=== PATIENT | female | born 1945 | race Caucasian/White ===

== ENCOUNTER 2023-09-25 12:57 | Inpatient (IN) | payer MEDICARE, OTHER, SELFPAY ==
[2023-09-25 08:14] VITALS: BP 171/82
--- NOTE | 2023-09-25 08:43 | ED.GENMED ---
History of Present Illness
General
Chief Complaint: Breathing Problem
Source: patient and family (Daughter)
Exam Limitations: none
Time Seen by Provider: 09/25/23 08:32
Nursing documentation reviewed up to this point in time: agreed with
Travel History
Have you had any contact with someone who has COVID-19?: No
Do you have any symptoms of coronavirus? Fever > 100 degrees, chills, cough, shortness of breath, sore throat, loss of taste or smell, muscle aches, or headache?: No
History of Present Illness
History of Present Illness:
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
for evaluation of cough and shortness of breath. Patient reports that she has had URI type symptoms for the past 4 days. She describes significant congestion and rhinorrhea, nonproductive cough. She says that she has had over the past 2 days or
so increasing cough and now shortness of breath as well. She says that today she noticed that she was having worsening shortness of breath and tightness in her chest and this prompted her to come to the emergency room for evaluation. She has not
noted any fevers or chills. She has not had any GI symptoms. She denies any swelling or pain in the legs. She says that her daughter was sick with URI recently and apparently her grandson was sick with influenza. Patient does take azithromycin
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
Past History
Past History
ED Past Medical History: CAD, GERD, HTN, Hypercholesterolemia, Valvular disease and Other (MAC)
ED Past Surgical History: Cardiac, , Tonsilectomy and Other
Social History
Tobacco: Non-smoker
Review of Systems
Review of Systems
All Other Systems: ROS reviewed and negative except as documented in HPI and ROS
Constitutional: Reports fatigue; Denies fever or chills
EENT: Reports runny nose and other (Congestion); Denies sore throat
Respiratory: Reports cough and trouble breathing
Cardiac: Reports chest pain (Chest tightness); Denies diaphoresis or palpitations
ABD/GI: Denies abdominal pain, nausea, vomiting or diarrhea
: Denies flank pain
Musculoskeletal: Denies neck pain or back pain
Neurological: Denies headache, weakness or numbness
Phy Exam
Physical Exam
Physical Exam:
General: Awake, alert; tachypneic but speaking full sentences not in acute respiratory distress
Head: Normocephalic, atraumatic
Eyes: Conjunctiva normal, sclera anicteric
Throat: Airway intact, handling secretions
Neck: Trachea midline, supple without meningismus; anterior cervical lymphadenopathy
Lungs: Frequent hacking cough, diffuse bilateral wheezing slightly more pronounced at the left lung base
Heart: Tachycardia with regular rhythm, no murmurs, gallops, or rubs
Abd: Soft, non distended, nontender
Neuro: Cranial nerves grossly intact, speech fluid
Skin: no rash
Extremities: No edema in extremities, equal pulses in all extremities
Scores
Heart Failure Risk
Heart Failure Risk Score: Not Applicable
Heart Score for Chest Pain Patients
STEMI patient?: Not applicable
Withdrawal Assessment of Alcohol
Withdrawal Assessment Completed?: Not applicable
Course
Orders/Labs/Results
Orders:
Orders
09/25/23 08:33
Electrocardiogram (*1) Urgent
Reason for Study: Shortness of Breath
EKG- Treatment ONCE
CR Chest - 2 Views Urgent
Comment:
Reason For Exam: cough, sob
09/25/23 08:42
COVID-19 Antigen Urgent
Source: Nasal Swab
Complete Blood Count/With Diff Urgent
Comprehensive Metabolic Panel Urgent
Influenza A+B Rapid Molecular Urgent
GT Source: Nasal Swab
Specimen Description:
Ipratropium/Albuterol Sulfate [Duoneb] 3 ml INH R NOW ONE
MethylPREDNISolone PF [Solu-Medrol Pf] 125 mg IV NOW STA
09/25/23 08:47
Acetaminophen [Tylenol] 650 mg PO NOW STA
09/25/23 10:10
Ipratropium/Albuterol Sulfate [Duoneb] 3 ml .ROUTE .STK-MED ONE
Ipratropium/Albuterol Sulfate [Duoneb] 3 ml INH R NOW STA
09/25/23 11:01
CefTRIAXone [Rocephin] 1,000 mg IV NOW STA
Abnormal Lab Results
09/25/23
08:42
RBC 4.09 L 10^6/uL
(4.20-5.40)
MCH 31.1 H pg
(27.0-31.0)
MCHC 32.6 L g/dL
(33.0-37.0)
Absolute Neuts (auto) 6.6 H 10^3/uL
(1.4-6.5)
Absolute Lymphs (auto) 1.0 L 10^3/uL
(1.2-3.4)
Neutrophils % 81.1 H %
(42.2-75.2)
Lymphocytes % 12.3 L %
(20.5-51.1)
Glucose 144 H mg/dl
(70-99)
09/25/23 08:42
09/25/23 08:42
Vital Signs
Initial and Last Documented VS:
Initial Vital Signs
Temp Pulse Resp BP Pulse Ox
36.8 C 105 30 171/82 90
09/25/23 08:14 09/25/23 08:14 09/25/23 08:14 09/25/23 08:14 09/25/23 08:14
Last Documented Vital Signs
Temp Pulse Resp BP Pulse Ox
36.8 C 98 26 134/60 89
09/25/23 08:14 09/25/23 10:15 09/25/23 10:15 09/25/23 10:00 09/25/23 10:15
MDM/Problems Addressed
Differential Diagnosis Includes:
Bronchitis, pneumonia, URI
MDM/Problems Addressed:
78-year-old female presents for evaluation of worsening cough and shortness of breath in the setting of recent URI type symptoms. Multiple family members sick with upper respiratory illnesses recently. She rash was hypertensive and tachycardic,
tachypneic. Low normal pulse ox on room air. Afebrile. Physical exam as above�notably has diffuse bilateral wheezing and frequent coughing. Plan to place an IV check labs including a CBC and a CMP; will check swabs for influenza and COVID. Will
check a stat chest x-ray to evaluate for pneumonia. Will treat with Solu-Medrol and DuoNeb given her significant wheezing, clinical concern for bronchitis. Will monitor very closely reassess after the above.
Labs reviewed: CBC unremarkable, CMP shows no clinically significant abnormalities. Viral swabs were negative here. Chest x-ray reviewed by me shows right middle lobe scarring versus opacity�was present on old chest x-ray but appears more
pronounced today. Clinical reassessment patient still with significant bilateral wheezing and coughing. Pulse ox actually slightly worse after DuoNeb and steroid she was placed on nasal cannula for oxygen support. Will cover with antibiotics for
possible pneumonia continue with DuoNeb treatments as well. At this point admission indicated given hypoxic respiratory failure and continued symptoms despite ED treatment. Discussed with hospitalist for admission.
Chronic conditions affecting care:
MAC with partial lung resection complicates respiratory illness
Acute Exacerbation and/or Progression of Chronic Illness:
Acutely hypertensive
*Radiology
Radiology exam reviewed: preliminary read by ED provider and radiology read reviewed
*Pulse Oximetry
Patient hypoxic: yes
*EKG
Interpreted by ED Provider?: Yes
Heart Rate: 97
Rate: normal
Rhythm: sinus
[place]: left axis deviation
Interval: normal interval
QRS Pattern: normal QRS
Ischemia: no ischemia
*Critical Care Note
Total Time (30-74mins, 75-104mins- exclusive of procedures): Not Applicable
Data Reviewed
Review of Other/Old Records Reveals: Labs and Records
Source: patient and family (Daughter)
Patient Management
Discussion with other providers: Hospitalist (Discussed with hospitalist)
Escalation/DeEscalation of care consider admission/obs:
Admission indicated
ED Attending Note
-
Portions of this chart may have been created with voice recognition software.� Occasional wrong word or��sound alike� substitutions may have occurred due to the inherent limitations of voice recognition software.
Discharge Plan
Departure
Patient Disposition: Admit
Date of Disposition: 09/25/23
Time of Disposition: 11:02
Admit to doctor: Charli
Presentation/result/management discussed w/ accepting MD/DO: Hospitalist
Discharge Problem:
Acute hypoxic respiratory failure, Pneumonia, Acute bronchitis
Prescriptions:
No Action
ascorbic acid (vitamin C) [Vitamin C] 1,000 mg Tablet
1,000 mg PO DAILY
prednisone 10 mg Tablet
10 mg PO DIRECTED PRN (Reason: SOB )
clopidogrel [Plavix] 75 mg Tablet
75 mg PO DAILY
pantoprazole 20 mg Tablet,Delayed Release (Dr/Ec)
20 mg PO DAILY
levothyroxine 88 mcg Tablet
88 mcg PO DAILY
losartan 25 mg Tablet
25 mg PO DAILY
magnesium 200 mg Tablet
200 mg PO 1XD
Rx Instructions:
In evening
rosuvastatin 20 mg Tablet
20 mg PO DAILY
Anoro Ellipta 62.5-25 mcg/actuation Blister With Device
1 inh INHALATION DAILY
aspirin 81 mg Capsule
81 mg PO DAILY
calcium
1,200 unit PO DAILY AT 0700
albuterol sulfate 2.5 mg /3 mL (0.083 %) Solution For Nebulization
2.5 mg inhalation R Q4HPRN PRN (Reason: SOB) Qty: 75 0RF
biotin 2,500 mcg Capsule
2,500 mcg PO DAILY
PreserVision AREDS-2
1 cap PO DAILY
Vitamin B-12
1 tab PO DAILY
apple cider vinegar
1 tab PO DAILY
Referrals:
Naldo Rene DO [Family Provider] -
Interventions
Interventions:
*Risk Screen - Suicide Last Done: 09/25/23 08:14
*General Assessment Last Done: 09/25/23 08:14
*Neglect/Abuse Screening Last Done: 09/25/23 08:14
ED- Fall Risk Assessment Last Done: 09/25/23 08:44
*ED COVID-19 Vaccine History Last Done: 09/25/23 08:43
ED- Cardiac Assessment Last Done: 09/25/23 08:44
ED- Pulmonary Assessment Last Done: 09/25/23 08:44
[2023-09-25] MEDS: TYLENOL 650 MG PO (08:51)
[2023-09-25] MEDS: SOLU-MEDROL PF 125 MG IV (08:52)
[2023-09-25] MEDS: DUONEB 3 ML INH ×2 (08:55→10:18)
[2023-09-25 09:04] LABS: % Basophils 0.4 % (0-2); % Eosinophils 0.1 % (0-6); % Immature Granulocytes 0.2 % (0-0.5); % Lymphocytes 12.3 % (20.5-51.1); % Monocytes 5.9 % (1.7-9.3); % Neutrophils 81.1 % (42.2-75.2); Absolute Monocytes 0.5 10^3/uL (0.1-0.6); Absolute Neutrophils 6.6 10^3/uL (1.4-6.5); Hemoglobin 12.7 g/dL (12.0-16.0); Mean Corp Hgb Conc. 32.6 g/dL (33.0-37.0); Mean Corpuscular Hgb 31.1 pg (27.0-31.0); Mean Corpuscular Volume 95.4 fL (81.0-99.0); Mean Platelet Volume 9.7 fL (7.4-10.4); Nucleated Red Blood Cells % 0 %; Platelet Count 205 10^3/uL (130-400); Red Blood Cell Count 4.09 10^6/uL (4.20-5.40); Red Cell Dist. Width 14.4 % (11.5-14.5); White Blood Cell Count 8.2 10^3/uL (4.8-10.8)
[2023-09-25 09:18] LABS: COVID-19 Antigen Negative (Negative)
[2023-09-25 09:20] LABS: ALT (SGPT) 18 U/L (0-35); AST (SGOT) 26 U/L (14-36); Albumin 4.1 g/dl (3.5-5.0); Alkaline Phosphatase 65 U/L (38-126); Blood Urea Nitrogen 10 mg/dl (7-17); Calcium 8.8 mg/dl (8.4-10.2); Carbon Dioxide 25 mmol/L (22-30); Chloride 104 mmol/L (98-107); Glucose 144 mg/dl (70-99); Potassium 4.2 mmol/L (3.5-5.1); Sodium 137 mmol/L (135-145); Total Bilirubin 0.4 mg/dl (0.2-1.3); Total Protein 7.2 g/dl (6.3-8.2); eGFR > 60.00
[2023-09-25 09:23] VITALS: BP 153/59
[2023-09-25 10:00] VITALS: BP 134/60
[2023-09-25] MEDS: ROCEPHIN 1000 MG IV (11:21)
--- NOTE | 2023-09-25 12:18 | HPS.HSE ---
Addendum entered and electronically signed by Jorge Alberto Augustin MD 09/25/23 21:07:
I independently saw and examined the patient on 09/25/23.
The DYNAMIC ETCHING PROCESSOR's note was reviewed and I agree with the note.
Comment:
78-year-old female with past medical history of CAD with stents, TAVR, bronchiectasis, pulm MAC treated in the past plus lung resection (previously followed at [facility] but physician retiring and now following Dr. Cobb who started
Azithromycin [facility]), COPD, HTN, HLD, GERD and Hypothyroidism presented from [facility] The patient reports that she has had worsening dry cough with shortness of breath , runny nose, sneezing, sore throat, left-sided anterior neck glands
swollen, fatigue for the past 4 days she is multiple family members sick with URI illnesses that flew in from [place] and that also live local to her. She denied fever, chills, chest pain, palpitations, abdominal pain, nausea, vomiting, diarrhea, or
urinary symptoms. She recently she was noted to be hypoxic 90% on room air with diffuse bilateral wheezing and coughing on exam.
Physical Exam
Tachypneic, on 6 L of oxygen
General: Respiratory Distress (n)
HEENT: Normocephalic
Cardiovascular: S1/S2
Respiratory: Wheeze, tachypnea present
GI: Soft and Non Distended. Positive bowel sounds.
Neurology: Awake, AO x 3 and No Motor Deficits
Skin: Warm and dry
Assessment/Plan
#Acute on chronic hypoxic respiratory failure 2/2 Acute bronchitis vs. Viral URI vs. PNA right lung
#History of Mycobacterium AVM complex
90% RA, 94% 6 LNC, 98.3 F, HR 98
-Patient recently had multiple family members recently visiting who were ill
-COVID/flu negative
-DuoNebs scheduled and as needed
-Prior pulmonary Dr elias Colon flashmj Pulm at [facility] for MAC
-Now follows with [facility] is on chronic Zithromax every other day started 2 weeks ago in August
-IV Decadron 4 mg every 6 hours
-Check sputum culture, blood cultures x 2, CBC, BMP
-DuoNebs scheduled and as needed
-No antibiotics except for Zithromax for anti-inflammatory effect
-Continue Anoro Ellipta
-Consult PULM
-COnsult I/D
-PT/OT/case management consult
CXR: Worsening aeration of the lungs anteriorly right greater than left consistent with superimposed pneumonic process in a patient with chronic lung changes
EKG: NSR 97 bpm, QTc 449 MS no significant change from January 2023
#Hyperglycemia�mild
BS 145 ,check HgbA1c
Healthy heart 2199 ADA diet
#Hypertension-benign
BP stable 134/60
-Continue losartan
#Hyperlipidemia
Continue Crestor
#CAD/cardiac stents
-Continue Plavix, aspirin
#AVR hx
#GERD
-Continue Protonix
#Hypothyroidism
-Continue levothyroxine
Past medical history of CAD with stents, TAVR, bronchiectasis, pulm MAC treated in the past plus lung resection (previously followed at [facility] but physician retiring and now following Dr. Cobb who started Azithromycin [facility]), COPD, HTN, HLD,
GERD and Hypothyroidism
DVT prophylaxis
-Subcu Lovenox
DNR per patient
Original Note:
Family Physician
-
Family Physician: Naldo Rene
Chief Complaint
-
Wheezing, shortness of breath, nonproductive cough, sneezing, postnasal drip, sore throat
History of Present Illness
78-year-old female from [facility] The patient reports that she has had worsening dry cough with shortness of breath , runny nose, sneezing, sore throat, left-sided anterior neck glands swollen, fatigue for the past 4 days she is multiple
family members sick with URI illnesses that flew in from [place] and that also live local to her. She denies fever, chills, chest pain, palpitations, abdominal pain, nausea, vomiting, diarrhea, urinary symptoms. She recently she was noted to be
hypoxic 90% on room air with diffuse bilateral wheezing and coughing on exam.
Patient followed with Elias durán at [facility] for MAC and scarring to lungs, but recently changed to [facility] and has been on chronic Zithromax every other day for the past 2 weeks. She has past medical history of CAD, HTN, HLD,
AVR, cardiac stents, GERD, hypothyroidism, lingular resection of left lung, Mycobacterium AVM complex.
Medical History
Past Medical History
Past Medical History: Reports Other (lingular resection of left lung, Mycobacterium AVM complex,CAD, HTN, HLD, AVR, cardiac stents, GERD, hypothyroidism)
Past Surgical History: Reports Other (lingular resection of left lung, Mycobacterium AVM complex, section, tonsillectomy, AVR)
Social History
Tobacco: Non-smoker
Alcohol: None
Drug: None
Personal: Single
Living: Alone ([facility])
Employment: Retired
Family History
Family History: CAD (Mother) and Other (Father abdominal ruptured aneurysm)
Allergies / Home Medications
Allergies reflects when Allergies were last updated in [employer].
Home Medications with original date entered in [employer]
Allergy/Medication List:
Allergies
Allergy/AdvReac Type Severity Reaction Status Date / Time
No Known Allergies Allergy Verified 05/06/22 07:39
Home Medications
ascorbic acid (vitamin C) 1,000 mg tablet (Vitamin C) 1,000 mg PO DAILY@1999 Supplement 02/26/23
clopidogrel 75 mg tablet (Plavix) 75 mg PO DAILY Blood Clot Prevention/Tx 02/26/23
levothyroxine 88 mcg tablet 88 mcg PO DAILY Thyroid 02/26/23
losartan 25 mg tablet 25 mg PO DAILY Blood Pressure 02/26/23
magnesium 200 mg tablet 200 mg PO DAILY@1999 Supplement 02/26/23
pantoprazole 20 mg tablet,delayed release 20 mg PO DAILY Gastrointestinal Issue 02/26/23
rosuvastatin 20 mg tablet 20 mg PO DAILY@1999 High Cholesterol 02/26/23
umeclidinium 62.5 mcg-vilanterol 25 mcg/actuation powdr for inhalation (Anoro Ellipta) 1 inh inhalation R DAILY Lung/Breathing Issues 02/26/23
Elderberry 1 tab PO .LUNCHTIME 09/25/23
Mucinex Cold And Flu Am 1 tab PO Q4HPRN PRN congestion 09/25/23
Mucinex Cold And Flu Pm 1 tab PO Q4HPRN PRN congestion 09/25/23
acetaminophen 325 mg tablet (Tylenol) 325 mg PO DAILYPRN PRN mild pain 09/25/23
albuterol sulfate 2.5 mg/3 mL (0.083 %) solution for nebulization 2.5 mg inhalation R BIDPRN PRN SOB 09/25/23
aspirin 81 mg tablet,delayed release 81 mg PO DAILY 09/25/23
azithromycin 250 mg tablet 250 mg PO MOWEFR@0800 09/25/23
biotin 2,500 mcg capsule 2,500 mcg PO DAILY 09/25/23
calcium carbonate 600 mg calcium (1,500 mg) tablet (Calcium) 1,200 mg PO DAILY@199909/25/23
clobetasol 0.05 % topical cream 1 applic topical HSPRN PRN apply to right leg 09/25/23
cyanocobalamin (vitamin B-12) 1 tab PO DAILY@199909/25/23
denosumab 60 mg/mL subcutaneous syringe (Prolia) 60 mg SC [id number] 09/25/23
Review of Systems
-
History Source: Patient
A 12 point ROS was completed and negative except as noted: Yes
Constitutional: Reports Fatigue; Denies Fever or Chills
EENT: Reports Sore Throat, Runny Nose and Other (Postnasal drip)
Respiratory: Reports Cough (Nonproductive) and Trouble Breathing (Expiratory wheezing)
Cardiac: Denies Chest Pain, Diaphoresis, Palpitations or Syncope
Abdomen/GI: Denies Abdominal Pain, Nausea, Vomiting, Diarrhea, Constipated, Bloody Stools or Black Stools
: Denies Dysuria, Frequency, Flank Pain, Incontinence, Difficulty Voiding or Urgency
Musculoskeletal: Denies Joint Pain or Edema
Skin: Denies Itching or Rash
Neurological: Denies Dizzy, Headache or Weakness
Endocrine: Reports No Symptoms
Hematologic/Lymphatic: Reports No Symptoms
Psych: Reports Calm
Physical Exam
Vital Signs
Vital Signs
Temp Pulse Resp BP Pulse Ox
98.3 F 98 26 134/60 94
09/25/23 08:14 09/25/23 10:15 09/25/23 10:15 09/25/23 10:00 09/25/23 11:58
Physical Exam
General: Conversant; No Pain, Fever or Chills
HEENT: NormoCephalic, Anicteric, Moist mucous membranes, [place]sey Conjunctivae, No Ptosis, Pharyngeal Efythema (Tonsils absent no posterior exudate), Oxygen (6L NC) and Other (Left anterior lymphadenopathy with tenderness to touch)
Respiratory: Wheezes (Fine expiratory wheezes bilaterally); No Rales or Rhonchi
Cardiac: S1/S2 and Regular Rhythm; No Murmur, Rub, Gallop or Peripheral Edema
Breast: Deferred by me
GI: Soft, Non Tender, Non Distended, Normal Bowel Sounds and No Hepatosplenomegaly
Rectal: Deferred by Provider
Genito-urinary: Deferred by me
Musculoskeletal: No Clubbing, No Cyanosis and No Edema
Skin: Warm and Dry; No Rash or Jaundice
Neuro: AO x 3, No Motor Deficits, Nonfocal/grossly intact and No Sensory Deficits; No Slurred Speech, Facial Droop, Tremors or Sedated
Psych: Calm
Laboratory Results
-
09/25/23 08:42
09/25/23 08:42
Laboratory Results
Total Bilirubin 0.4 mg/dl (0.2-1.3) 09/25/23 08:42
AST 26 U/L (14-36) 09/25/23 08:42
ALT 18 U/L (0-35) 09/25/23 08:42
Alkaline Phosphatase 65 U/L (38-126) 09/25/23 08:42
Data Reviewed
-
Diagnostic Radiology: Report Reviewed by me
Lab Data: Labs Reviewed by me
Impression/Plan
-
Impression/plan:
Admit to MedSurg
#Acute on chronic hypoxic respiratory failure 2/2 Acute bronchitis vs PNA right lung
#HX Mycobacterium AVM complex
90% RA, 94% 6 LNC, 98.3 F, HR 98
-COVID/flu negative
-DuoNebs scheduled and as needed
-Prior pulmonary Dr elias parra Pulm at [facility] for MAC
-Now follows with [facility] is on chronic Zithromax every other day started 2 weeks ago in August
-IV Decadron 4 mg every 6 hours
-Check sputum culture, blood cultures x 2, CBC, BMP
-Check strep culture
-Throat loss injures
-DuoNebs scheduled and as needed
-IV Zithromax, IV Rocephin
-Continue Anoro Ellipta
-Consult PULM
-COnsult I/D
-PT/OT/case management consult
CXR: Worsening aeration of the lungs anteriorly right greater than left consistent with superimposed pneumonic process in a patient with chronic lung changes
EKG: NSR 97 bpm, QTc 449 MS no significant change from January 2023
#Hyperglycemia�mild
BS 145 ,check HgbA1c
Healthy heart 2200 ADA diet
#HTN-benign
BP stable 134/60
-Continue losartan
#HLD
Continue Crestor
#CAD/cardiac stents
-Continue Plavix, aspirin
#AVR hx
#GERD
-Continue Protonix
#Hypothyroidism
-Continue levothyroxine
DVT prophylaxis
-Subcu Lovenox
DNR per patient
[2023-09-25] MEDS: ANESTHETIC LOZENGE 1 LOZENGE PO (13:15)
[2023-09-25 14:07] VITALS: BP 144/68; BMI 28.0
--- NOTE | 2023-09-25 14:31 | PTCARENOTE ---
Received patient from ED via stretcher. AAOx3, assisted to bed. +SOB/PAN, 6LO2 94%. Daughter at bedside. Assessed and oriented to room. Call doan in close reach.
[2023-09-25] MEDS: ZITHROMAX INFUSION 250 IV (14:49)
--- NOTE | 2023-09-25 14:54 | CON.ID ---
Consultation
-
Date/Time Consultation Requested: 09/25/2023, 1248
Date/Time Consultation Performed: 09/25/2023, 1455
Requesting Provider: JÚNIOR Lockhart
Performing Provider: Dr. Leonarda Barba
Reason for Consultation: bronchtis vs MAC vs PNA
Chief Complaint / Past History
Chief Complaint
SOB
History of Present Illness
78 year old female with CAD, TAVR, bronchiectasis, pulm MAC treated in the past plus lung resection (previously followed at [facility] but physician retiring and now following Dr. Cobb who started Azithromycin [facility]). She started feeling unwell
since Friday 09/22. She c/o painful left neck gland, sneezing, rhinorrhea, then cough (mostly dry), with SOB. She reports her daughter flew in from [place] last week. Daughter caught something on the plane with URI. Her nephew also recently ill
with URI. Pt's breathing became very labored and therefore she came to the ED today. No fevers. CXR showed worsening aeration of bases. She was started on ceftriaxone, azithromycin, and steroid. The neck gland is less sore. No
ARAYA/N/V/dysuria/diarrhea.
Past History
Additional Past Medical History:
CAD s/p stents
HTN
HLD
TAVR
GERD
hypothyroidism
bronchiectasis, lung scarring
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
Allergy History:
No Known Allergies Allergy (Verified 05/06/22 07:39)
Medications Reviewed: Yes
Current Antibiotics:
Ceftriaxone
Azithromycin IV
Social History
Tobacco: Non-Smoker
Alcohol: None
Drug: None
Family History
Family History: Not Pertinent
Review of Systems
Review of Systems
General: Change in Appetite; Negative Fever or Chills
HEENT: Negative Stiff Neck, Sinus Problems or Headache
Respiratory: Dyspnea and Cough
Gasteroenterology: Negative Nausea or Vomiting
Genital / Urological: Negative Dysuria or Flank Pain
Endocrine: Weakness
Skin / Hair / Nails: Negative Rash
Neurological: Negative Headache or Dizziness
All systems: All other systems were reviewed and were negative
Vital Signs
Temp Pulse Resp BP Pulse Ox
98.3 F 99 22 144/68 94
09/25/23 14:07 09/25/23 14:07 09/25/23 14:07 09/25/23 14:07 09/25/23 14:38
Physical Exam
Physical Exam
Constitutional: Non-toxic
Head: Other (No frontal or maxillary sinus tenderness)
Eyes: Sclera Anicteric
Cardiovascular: Regular Rate and S1/S2
Pulmonary: Other (labored breathing; decreased airway movement bilaterally)
Gastrointestinal: Soft, Non Tender, Non Distended and Normal Bowel Sounds
Genito-Urinary: Negative CVA Tenderness
Extremities: Negative Edema
Neurological: AO x 3
Lab / Diagnostic Study Results
09/25/23 08:42
09/25/23 08:42
Abs Immat Gran (auto) 0.0 10^3/uL (0-0.05) 09/25/23 08:42
Absolute Neuts (auto) 6.6 10^3/uL (1.4-6.5) H 09/25/23 08:42
Absolute Lymphs (auto) 1.0 10^3/uL (1.2-3.4) L 09/25/23 08:42
Absolute Monos (auto) 0.5 10^3/uL (0.1-0.6) 09/25/23 08:42
Absolute Basos (auto) 0.0 10^3/uL (0-0.2) 09/25/23 08:42
Immature Gran % 0.2 % (0-0.5) 09/25/23 08:42
Neutrophils % 81.1 % (42.2-75.2) H 09/25/23 08:42
Lymphocytes % 12.3 % (20.5-51.1) L 09/25/23 08:42
Monocytes % 5.9 % (1.7-9.3) 09/25/23 08:42
Eosinophils % 0.1 % (0-6) 09/25/23 08:42
Basophils % 0.4 % (0-2) 09/25/23 08:42
Microbiology Results
Micro:
09/25/23 12:56 Streptococcus Screen (GT) - Pending
Throat/Pharynx Streptococcus Rapid Screen - Final
Rapid Strep Screen (Group A) Negative
09/25/23 08:42 Influenza Types A & B (ABILIO) - Final
Nasal Swab Negative for Influenza A & B, NAAT
Negative results must be combined with clinical observations
and patient history.
Nucleic Acid Amplification test (NAAT)performed on the
[employer] platform.
09/25/23 CXR: Worsening aeration of the lung bases anteriorly right greater than left, consistent with superimposed pneumonic process in a patient with chronic lung changes
Assessment / Plan
# Viral URI
-sneezing, rhinorrhea, dry cough, multiple ill contacts family members with URI
-Supportive care.
# Bronchiectasis exacerbation with hypoxic insufficiency, triggered by viral URI
- currently on steroid
- Can continue azithromycin for anti-inflammatory effect
- DC ceftriaxone.
# Pulmonary MAC s/p lung resection (2012) and treated in the past.
- Per patient no worsening symptoms since off therapy.
-Recommend observation only.
--- NOTE | 2023-09-25 15:10 | PTOTSP ---
Speech Therapy Swallowing Evaluation
Oral/pharyngeal swallow deemed within functional limits without gross concern for aspiration or pharyngeal stasis.
Recommend
1. Continue with current diet of regular solids and thin liquids.
2. Upright with meals.
3. Rest breaks for energy conservation as needed if sob or increased work of breathing develops.
4. Meds with liquids as tolerated.
5. Consider VSE if silent aspiration is suspected. Otherwise ST will sign off
[2023-09-25 15:50] VITALS: BP 137/67
--- NOTE | 2023-09-25 15:53 | CON.PUL ---
Consultation
Consultation Request
Date/Time Consultation Requested: 09/25/2023
Date/Time Consultation Performed: 09/25/2023
Requesting Provider: Etta CALLEJAS
Performing Provider: Dr. Sukhdev Sims
Reason for Consultation: Acute respiratory insufficiency-bronchitis.
Medical History
-
History of Present Illness:
78-year-old female who resides at [facility]. Reports worsening cough, shortness of breath, runny nose, upper respiratory symptoms, sore throat for the past 4 days. Multiple family members are sick that were visiting from [place].
Denies any fevers, hemoptysis, phlegm production, diarrhea, nausea or vomiting.
She was found to be borderline hypoxic down to 90% in the emergency room. She was bronchospastic. Significant coughing during examination.
Patient usually follows up at [facility] with Dr. Yaw Segura for MAC and lung scarring, she was recently transition to our practice locally. She was started on low-dose azithromycin for anti-inflammatory properties about 2 weeks
ago.
Past Medical History
Past Medical History: Other (See assessment and plan section)
Social History
Tobacco: Non-smoker
Alcohol: None
Drug: None
Personal: Single
Living: Alone
Employment: Retired
Family History
Family History: Reviewed & Not Pertinent
Allergies / Home Medications
Allergies
Allergy/AdvReac Type Severity Reaction Status Date / Time
No Known Allergies Allergy Verified 05/06/22 07:39
Home Medications
Medication Instructions Recorded Confirmed Last Taken Type
ascorbic acid (vitamin C) 1,000 mg 1,000 mg PO DAILY@1999 Supplement 02/26/23 09/25/23 09/24/23 History
tablet (Vitamin C)
clopidogrel 75 mg tablet (Plavix) 75 mg PO DAILY Blood Clot 02/26/23 09/25/23 09/25/23 History
Prevention/Tx
levothyroxine 88 mcg tablet 88 mcg PO DAILY Thyroid 02/26/23 09/25/23 09/25/23 History
losartan 25 mg tablet 25 mg PO DAILY Blood Pressure 02/26/23 09/25/23 09/25/23 History
magnesium 200 mg tablet 200 mg PO DAILY@1999 Supplement 02/26/23 09/25/23 09/24/23 History
pantoprazole 20 mg tablet,delayed 20 mg PO DAILY Gastrointestinal 02/26/23 09/25/23 09/25/23 History
release Issue
rosuvastatin 20 mg tablet 20 mg PO DAILY@1999 High 02/26/23 09/25/23 09/24/23 History
Cholesterol
umeclidinium 62.5 mcg-vilanterol 1 inh inhalation R DAILY 02/26/23 09/25/23 09/25/23 History
25 mcg/actuation powdr for Lung/Breathing Issues
inhalation (Anoro Ellipta)
Elderberry 1 tab PO .LUNCHTIME 09/25/23 09/25/23 09/24/23 History
Mucinex Cold And Flu Am 1 tab PO Q4HPRN PRN congestion 09/25/23 09/25/23 09/25/23 History
Mucinex Cold And Flu Pm 1 tab PO Q4HPRN PRN congestion 09/25/23 09/25/23 09/24/23 History
acetaminophen 325 mg tablet 325 mg PO DAILYPRN PRN mild pain 09/25/23 09/25/23 09/25/23 History
(Tylenol)
albuterol sulfate 2.5 mg/3 mL 2.5 mg inhalation R BIDPRN PRN SOB 09/25/23 09/25/23 09/25/23 History
(0.083 %) solution for nebulization
aspirin 81 mg tablet,delayed 81 mg PO DAILY 09/25/23 09/25/23 09/25/23 History
release
azithromycin 250 mg tablet 250 mg PO MOWEFR@0800 09/25/23 09/25/23 09/24/23 History
biotin 2,500 mcg capsule 2,500 mcg PO DAILY 09/25/23 09/25/23 09/25/23 History
calcium carbonate 600 mg calcium 1,200 mg PO DAILY@199909/25/23 09/25/23 09/24/23 History
(1,500 mg) tablet (Calcium)
clobetasol 0.05 % topical cream 1 applic topical HSPRN PRN apply 09/25/23 09/25/23 2 Days Ago History
to right leg ~09/23/23
cyanocobalamin (vitamin B-12) 1 tab PO DAILY@199909/25/23 09/25/23 09/24/23 History
denosumab 60 mg/mL subcutaneous 60 mg SC [id number] 09/25/23 09/25/23 Unknown History
syringe (Prolia)
Review of Systems
-
History Source: Patient
All other systems: Negative unless noted
Vitals / Labs / Diagnostic Testing
Vital Signs
Temp Pulse Resp BP Pulse Ox
98.3 F 99 22 144/68 94
09/25/23 14:07 09/25/23 14:07 09/25/23 14:07 09/25/23 14:07 09/25/23 14:38
Lab Data
09/25/23 08:42
09/25/23 08:42
Microbiology
09/25/23 12:56 Throat/Pharynx Streptococcus Rapid Screen - Final
Rapid Strep Screen (Group A) Negative
09/25/23 08:42 Nasal Swab Influenza Types A & B (ABILIO) - Final
Negative for Influenza A & B, NAAT
Negative results must be combined with clinical observations
and patient history.
Nucleic Acid Amplification test (NAAT)performed on the
[employer] platform.
Diagnostic Testing:
Physical Exam
-
HEENT: Normocephalic
Cardiovascular: S1/S2
Respiratory: Wheeze
GI: Soft and Non Distended
Neurology: Awake, AO x 3 and No Motor Deficits
Skin: Warm
General: Respiratory Distress (n)
Assessment
-
-
Cough/bronchitis-respiratory sufficiency.
Conditions present prior admission:
Chronic, multifactorial including: Deconditioning, COPD, underlying bronchiectasis with post inflammatory scarring.CT chest: Improved groundglass opacities, Chronic bronchiectasis noted. Minimal 3 in bud opacities bilaterally.
History of MAC infection diagnosed in 2008, treated with antibiotics [id number]. Repeat sputum cultures were negative per prior manager programs report. No indication of active infection. Continue to monitor.Repeat CT chest 04/2023:Showed improvement on
acute pneumonia. There is chronic bronchiectasis.
Now Following locally with Dr. Sims last seen 09/10/2023
Moderate obstructive lung disease on pulmonary function testing 09/10/2023.
Chronically on ANORO
Coronary artery disease
Hypertension
Hyperlipidemia
History of aortic valve replacement
Cardiac stents
GERD
Hypothyroidism
CT chest 05/10/2023:
1. Chronic scarring and bronchiectasis within the right middle lobe. Chronic scarring at the left lung apex. Scattered foci of tree-in-bud opacities. Overall, findings are most suggestive of chronic indolent infection such as ESTELLA. Mild interstitial
fibrosis remains in the differential diagnosis.
2. Groundglass opacities seen on prior CT dated 02/27/2023 has significantly improved, and nearly resolved.
3. Moderate calcification of the LAD. Please correlate with symptoms of and risk factors for coronary artery disease, with further workup as clinically appropriate.
4. Small hiatal hernia, without evidence of incarceration.
5. Cholelithiasis without evidence of acute cholecystitis.
Assessment and plan:
Clinical picture more consistent with viral infection, exacerbated bronchiectasis due to this viral infection.
Continue symptomatic management
Continue steroids with hopefully rapid taper-is still bronchospastic.
Infectious disease correspondence reviewed: No need for additional antibiotics.
Continue azithromycin at a low dose prescribed by Dr. Sims for anti-inflammatory properties. dose after discharge should be 250 mg [id number]-[id number]-Ljjlyq
Patient usually on ANORO in the outpatient setting, trying to avoid inhaled corticosteroids due to increased risk of recurrent infection/ESTELLA.
Patient states that she is coughing significantly, hold inhalers.
Transition to nebulized DuoNebs.
Acapella device for secretion clearance
Antitussive
Mucolytic's
-
Last appointment 09/10/2023: Recurrent ESTELLA was not highly suspected.
Eventually will obtain repeat a sputum culture
Overall her latest CT of the chest shows significant improvement on bilateral infiltrates. She has chronic changes.
Her symptoms have been stable after ESTELLA therapy.
I will continue to observe in the outpatient setting.
-
Will continue to follow
[2023-09-25] MEDS: VENTOLIN NEBULES 2.5 MG INH ×2 (16:02→20:31)
[2023-09-25] MEDS: DECADRON 4 MG IV ×2 (16:09→22:29)
[2023-09-25] MEDS: LOVENOX 40 MG SC (17:33)
[2023-09-25] MEDS: MUCINEX 600 MG PO (20:01)
[2023-09-25] MEDS: CRESTOR 20 MG PO (20:01)
[2023-09-25] MEDS: MAG-TAB SR 84 MG PO (20:01)
[2023-09-25] MEDS: OSCAL CAL 500 1000 MG PO (20:01)
[2023-09-25] MEDS: VITAMIN C 1000 MG PO (20:01)
[2023-09-25 23:56] VITALS: BP 157/72
[2023-09-26] MEDS: SYNTHROID 88 MCG PO (05:16)
[2023-09-26] MEDS: DECADRON 4 MG IV ×4 (05:18→21:33)
[2023-09-26 07:00] VITALS: BP 137/58
[2023-09-26] MEDS: STRIVERDI RESPIMAT 2 PUFF INH (07:56)
[2023-09-26] MEDS: SPIRIVA RESPIMAT 2.5 MCG 2 PUFF INH (07:56)
[2023-09-26] MEDS: VENTOLIN NEBULES 2.5 MG INH ×4 (07:56→19:31)
[2023-09-26 08:34] LABS: ALT (SGPT) 18 U/L (0-35); AST (SGOT) 26 U/L (14-36); Alkaline Phosphatase 55 U/L (38-126); Blood Urea Nitrogen 15 mg/dl (7-17); Calcium 8.8 mg/dl (8.4-10.2); Carbon Dioxide 28 mmol/L (22-30); Chloride 103 mmol/L (98-107); Estimated Creatinine Clearance 63 ml/min; Glucose 206 mg/dl (70-99); Sodium 136 mmol/L (135-145); Total Bilirubin 0.4 mg/dl (0.2-1.3); eGFR > 60.00
[2023-09-26] MEDS: MUCINEX 600 MG PO ×2 (09:01→19:34)
[2023-09-26] MEDS: ASPIR LOW (ENTERIC COATED) 81 MG PO (09:01)
[2023-09-26] MEDS: VITAMIN B-12 1000 MCG PO (09:01)
[2023-09-26] MEDS: PROTONIX 20 MG PO (09:01)
[2023-09-26] MEDS: COZAAR 25 MG PO (09:01)
[2023-09-26] MEDS: PLAVIX 75 MG PO (09:01)
[2023-09-26] MEDS: ZITHROMAX 500 MG PO (09:01)
[2023-09-26] MEDS: FLUSH (NSS) 1 FLUSH IV ×2 (10:19→16:27)
[2023-09-26 10:30] VITALS: BP 144/57; PULSE 83; O2SAT 90
[2023-09-26] MEDS: TESSALON PERLES 100 MG PO (11:23)
[2023-09-26] MEDS: TYLENOL 650 MG PO (11:23)
--- NOTE | 2023-09-26 11:38 | CM ---
Patient seen bedside, initial assessment completed. Patient reports she resides alone at [facility], one story, denies DME in home. Patient currently on O2. Patient reports outpatient PT in past, [facility] in past, [facility] in
past. Patient confirms PCP Naldo Cortez, pharmacy [facility]. CM will continue to follow for discharge planning needs.
Plan; return to [facility], watch for PT/OT eval.
--- NOTE | 2023-09-26 13:15 | W.PN.ID1 ---
Date of Service
Date of Service: September 26, 2023
Today's Communication
Continue azithromycin.
Assessment / Plan
# Viral URI
-sneezing, rhinorrhea, dry cough, multiple ill contacts family members with URI
-Supportive care.
# Bronchiectasis exacerbation, triggered by viral URI
- Oxygen requirement decreased
- currently on steroid
- Can continue azithromycin (d2) for anti-inflammatory effect
# Pulmonary MAC s/p lung resection (2012) and treated in the past.
- Per patient no worsening symptoms since off therapy.
-Recommend observation only.
Additional Past Medical History:
CAD s/p stents
HTN
HLD
TAVR
GERD
hypothyroidism
bronchiectasis, lung scarring
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
Chief Complaint
-: Other (Viral URI)
Subjective / Review of Systems
+ SOB. Unable to produce sputum. Left neck gland no longer sore.
Vital Signs / Physical Exam
Vital Signs
Vital Signs
Temp Pulse Resp BP Pulse Ox
97.9 F 85 24 137/58 92
09/26/23 07:00 09/26/23 11:23 09/26/23 11:23 09/26/23 09:01 09/26/23 11:23
Physical Exam
Constitutional: No Acute Distress and Comfortable
Eyes: Sclera Anicteric
Cardiovascular: Regular Rate, S1/S2 and Other
Pulmonary: Other (Decreased BS)
Gastrointestinal: Soft, Non Tender, Non Distended and Normal Bowel Sounds
Genito-Urinary: Negative Gomez
Neurological: AO x 3
Objective Data
Lab Data
Lab Results
09/26/23 06:49
Estimated Creat Clear 63 ml/min 09/26/23 06:49
Total Bilirubin 0.4 mg/dl (0.2-1.3) 09/26/23 06:49
AST 26 U/L (14-36) 09/26/23 06:49
ALT 18 U/L (0-35) 09/26/23 06:49
Alkaline Phosphatase 55 U/L (38-126) 09/26/23 06:49
Most recent labs reviewed.
Micro Results:
09/25/23 12:56 Streptococcus Screen (GT) - Preliminary
Throat/Pharynx Culture in Progress
Streptococcus Rapid Screen - Final
Rapid Strep Screen (Group A) Negative
09/25/23 08:42 Influenza Types A & B (ABILIO) - Final
Nasal Swab Negative for Influenza A & B, NAAT
Negative results must be combined with clinical observations
and patient history.
Nucleic Acid Amplification test (NAAT)performed on the
[employer] platform.
09/25/23 CXR: Worsening aeration of the lung bases anteriorly right greater than left, consistent with superimposed pneumonic process in a patient with chronic lung changes
[2023-09-26 13:57] LABS: % Basophils 0.1 % (0-2); % Immature Granulocytes 0.3 % (0-0.5); % Lymphocytes 5.5 % (20.5-51.1); % Monocytes 3.5 % (1.7-9.3); % Neutrophils 90.6 % (42.2-75.2); Absolute Lymphocytes 0.5 10^3/uL (1.2-3.4); Absolute Monocytes 0.3 10^3/uL (0.1-0.6); Absolute Neutrophils 8.1 10^3/uL (1.4-6.5); Hematocrit 37.5 % (37.0-47.0); Hemoglobin 12.1 g/dL (12.0-16.0); Mean Corp Hgb Conc. 32.3 g/dL (33.0-37.0); Mean Corpuscular Hgb 30.9 pg (27.0-31.0); Mean Corpuscular Volume 95.7 fL (81.0-99.0); Mean Platelet Volume 9.8 fL (7.4-10.4); Nucleated Red Blood Cells % 0.2 %; Platelet Count 220 10^3/uL (130-400); Red Blood Cell Count 3.92 10^6/uL (4.20-5.40); Red Cell Dist. Width 14.6 % (11.5-14.5); White Blood Cell Count 8.9 10^3/uL (4.8-10.8)
[2023-09-26 15:31] VITALS: BP 141/57
--- NOTE | 2023-09-26 15:36 | W.PN.PUL3 ---
Today's Communication / Plan
-
Continue azithromycin
Continue secretion clearance interventions
Increase activity as tolerated
Monitor blood sugars on high-dose of his steroids.
Cont. IV dexamethasone.
Assessment
-
-
Cough/bronchitis-respiratory sufficiency.
Bronchospasm
Suspect Bronchiectasis exacerbation- tracheobronchitis, post viral infection.
Conditions present prior admission:
Chronic, multifactorial including: Deconditioning, COPD, underlying bronchiectasis with post inflammatory scarring.CT chest: Improved groundglass opacities, Chronic bronchiectasis noted. Minimal 3 in bud opacities bilaterally.
History of MAC infection diagnosed in 2008, treated with antibiotics [id number]. Repeat sputum cultures were negative per prior manager telemarketing report. No indication of active infection. Continue to monitor.Repeat CT chest 04/2023:Showed improvement on
acute pneumonia. There is chronic bronchiectasis.
Now Following locally with Dr. Sims last seen 09/10/2023
Moderate obstructive lung disease on pulmonary function testing 09/10/2023.
Chronically on ANORO
Coronary artery disease
Hypertension
Hyperlipidemia
History of aortic valve replacement
Cardiac stents
GERD
Hypothyroidism
CT chest 05/10/2023:
1. Chronic scarring and bronchiectasis within the right middle lobe. Chronic scarring at the left lung apex. Scattered foci of tree-in-bud opacities. Overall, findings are most suggestive of chronic indolent infection such as ESTELLA. Mild interstitial
fibrosis remains in the differential diagnosis.
2. Groundglass opacities seen on prior CT dated 02/27/2023 has significantly improved, and nearly resolved.
3. Moderate calcification of the LAD. Please correlate with symptoms of and risk factors for coronary artery disease, with further workup as clinically appropriate.
4. Small hiatal hernia, without evidence of incarceration.
5. Cholelithiasis without evidence of acute cholecystitis.
Assessment and plan:
Clinical picture more consistent with viral infection, exacerbated bronchiectasis due to this viral infection.
Continue symptomatic management
Still bronchospastic/coughing 09/26/2023. Feels tired.
Continue dexamethasone 4mg Iv q6hr.
Infectious disease correspondence reviewed: No need for additional antibiotics.
Continue azithromycin.
-
Continue azithromycin at a low dose prescribed by Dr. Sims for anti-inflammatory properties. dose after discharge should be 250 mg Lotluu-Mfizipspr-Cctysj
Patient usually on ANORO in the outpatient setting, trying to avoid inhaled corticosteroids due to increased risk of recurrent infection/ESTELLA.
Patient states that she is coughing significantly, hold inhalers.
-
Cont inhalers
Albuterol nebs QID
-
Acapella device for secretion clearance
Antitussive
Mucolytic's
-
Last appointment 09/10/2023: Recurrent ESTELLA was not highly suspected.
Eventually will obtain repeat a sputum culture
Overall her latest CT of the chest shows significant improvement on bilateral infiltrates. She has chronic changes.
Her symptoms have been stable after ESTELLA therapy.
I will continue to observe in the outpatient setting.
-
Will continue to follow
Subjective Data
-
Date of Service:
Date of Service: September 26, 2023
Chief Complaint: Pulmonary Follow Up (Acute respiratory insufficiency-acute bronchiectasis exacerbation.)
Subjective:
Continues to report coughing from
No significant hemoptysis or phlegm production
Review of Systems
General: Fever (n)
Cardiopulmonary: Dyspnea (none at rest), Cough and Wheezing
GI: Abdominal Pain (n) and Nausea (n)
Objective Data
Data Reviewed
Vital Signs / I&O / Oxygen:
Vital Signs
Temp Pulse Resp BP Pulse Ox
98.0 F 86 24 141/57 95
09/26/23 15:31 09/26/23 15:31 09/26/23 15:31 09/26/23 15:31 09/26/23 15:31
Intake and Output
09/25/23 09/26/23 09/27/23
06:59 06:59 06:59
Intake Total 970 / 970
Balance 970 / 970
SaO2 95
Nasal Cannula flow liters per 4
minute
Physical Exam
General: Respiratory Distress (n) and Comfortable
HEENT: Normocephalic
Cardiovascular: S1-S2 and Regular Rhythm
Respiratory: Wheeze
GI: Soft and Non Distended
Neurology: Awake and Alert
Skin: Warm
Labs/Micro/Reports
Lab Data
09/26/23 06:49
09/26/23 06:49
Microbiology
09/25/23 12:56 Throat/Pharynx Streptococcus Screen (GT) - Preliminary
Culture in Progress
09/25/23 12:56 Throat/Pharynx Streptococcus Rapid Screen - Final
Rapid Strep Screen (Group A) Negative
09/25/23 08:42 Nasal Swab Influenza Types A & B (ABILIO) - Final
Negative for Influenza A & B, NAAT
Negative results must be combined with clinical observations
and patient history.
Nucleic Acid Amplification test (NAAT)performed on the
[employer] platform.
--- NOTE | 2023-09-26 15:54 | PTCARENOTE ---
Pt AAO x3, HANSON; OOB to chair/BR; mark well. VSS. Currently on nc 4 lpm- aehehgd00%.; pt has marked PAN/tachypnea with activity. Pt with occ dry, non-productive cough; c/o chest/ribs 'aching' with coughing. Abd large, soft, mark PO. Voiding in BR
without difficulty. Resting in bed at present. Will continue to monitor.
--- NOTE | 2023-09-26 16:01 | W.PN.HOSP.TC ---
Today's Communication/Plan
-
Please see below
Assessment / Plan
Assessment / Plan
Physical Exam
Tachypneic, on 6 L of oxygen
General: Respiratory Distress (n)
HEENT: Normocephalic
Cardiovascular: S1/S2
Respiratory: Wheeze, tachypnea present
GI: Soft and Non Distended. Positive bowel sounds.
Neurology: Awake, AO x 3 and No Motor Deficits
Skin: Warm and dry
Assessment/Plan
#Acute on chronic hypoxic respiratory failure 2/2 Viral URI (likely) vs. PNA right lung (unlikely)
#History of Mycobacterium AVM complex
#Bronchiectasis
#Pulm MAC treated in the past plus lung resection (previously followed at [facility] but physician retiring and now following Dr. Cobb who started Azithromycin [facility]),
#COPD
-Patient recently had multiple family members recently visiting who were ill
-COVID/flu negative
-DuoNebs scheduled and as needed
-Prior pulmonary Dr elias parra Pulm at [facility] for MAC
-Now follows with [facility] is on chronic Zithromax every other day started 2 weeks ago in August
-IV Decadron 4 mg every 6 hours
-Continue secretion clearance interventions
-Follow sputum culture, blood cultures x 2
-DuoNebs scheduled and as needed
-No antibiotics except for Zithromax for anti-inflammatory effect
-Continue Anoro Ellipta
-Consulted pulmonary, recommendations appreciated
-Consulted ID, recommendations appreciated
-PT/OT/case management consult
�� CXR: Worsening aeration of the lungs anteriorly right greater than left consistent with superimposed pneumonic process in a patient with chronic lung changes
�� EKG: NSR 97 bpm, QTc 449 MS no significant change from January 2023
#Hyperglycemia�mild
BS 145 ,check HgbA1c
Healthy heart 2200 ADA diet
Monitor while on steroids
#Hypertension-benign
-Continue losartan
#Hyperlipidemia
Continue Crestor
#CAD/cardiac stents
-Continue Plavix, aspirin
#TAVR hx
#GERD
-Continue Protonix
#Hypothyroidism
-Continue levothyroxine
DVT prophylaxis
-Subcu Lovenox
DNR per patient
Anticipated Discharge: > 48 hours
Subjective/Interval History
-
Date of Service: September 26, 2023
Patient was seen and examined. She was still feeling about the same, breathing with effort.
Objective Data
-
Labs:
Laboratory Results
09/26/23
06:49
WBC 8.9
Hgb 12.1
Hct 37.5
Plt Count 220
Sodium 136
Potassium 5.0
Chloride 103
Carbon Dioxide 28
BUN 15
Creatinine 0.7
Glucose 206 H
Calcium 8.8
Total Bilirubin 0.4
AST 26
ALT 18
Alkaline Phosphatase 55
Vital Signs:
Vital Signs
Temp Pulse Resp BP Pulse Ox
98.0 F 88 24 141/57 95
09/26/23 15:31 09/26/23 15:39 09/26/23 15:39 09/26/23 15:31 09/26/23 15:54
I&O
09/25/23 09/26/23 09/27/23
06:59 06:59 06:59
Intake Total 970 / 970
Balance 970 / 970
[2023-09-26] MEDS: LOVENOX 40 MG SC (17:38)
[2023-09-26] MEDS: CRESTOR 20 MG PO (19:34)
[2023-09-26] MEDS: MAG-TAB SR 84 MG PO (19:34)
[2023-09-26] MEDS: OSCAL CAL 500 1000 MG PO (19:34)
[2023-09-26] MEDS: VITAMIN C 1000 MG PO (19:34)
[2023-09-26 23:55] VITALS: BP 143/63
[2023-09-27 00:02] VITALS: BP 143/63
[2023-09-27] MEDS: DECADRON 4 MG IV ×3 (04:41→15:33)
[2023-09-27] MEDS: SYNTHROID 88 MCG PO (05:33)
[2023-09-27 07:00] VITALS: BP 141/65
[2023-09-27] MEDS: STRIVERDI RESPIMAT 2 PUFF INH (07:10)
[2023-09-27] MEDS: SPIRIVA RESPIMAT 2.5 MCG 2 PUFF INH (07:10)
[2023-09-27] MEDS: VENTOLIN NEBULES 2.5 MG INH ×2 (07:10→11:18)
[2023-09-27 07:15] LABS: % Basophils 0.1 % (0-2); % Immature Granulocytes 0.6 % (0-0.5); % Lymphocytes 9.9 % (20.5-51.1); % Neutrophils 84.4 % (42.2-75.2); Absolute Immature Granulocytes 0.1 10^3/uL (0-0.05); Absolute Lymphocytes 0.8 10^3/uL (1.2-3.4); Absolute Monocytes 0.4 10^3/uL (0.1-0.6); Absolute Neutrophils 6.8 10^3/uL (1.4-6.5); Hematocrit 39.6 % (37.0-47.0); Hemoglobin 12.8 g/dL (12.0-16.0); Mean Corp Hgb Conc. 32.3 g/dL (33.0-37.0); Mean Corpuscular Volume 95.9 fL (81.0-99.0); Mean Platelet Volume 9.4 fL (7.4-10.4); Nucleated Red Blood Cells % 0 %; Platelet Count 209 10^3/uL (130-400); Red Blood Cell Count 4.13 10^6/uL (4.20-5.40); Red Cell Dist. Width 14.3 % (11.5-14.5)
[2023-09-27 08:18] LABS: ALT (SGPT) 23 U/L (0-35); AST (SGOT) 36 U/L (14-36); Albumin 4.2 g/dl (3.5-5.0); Alkaline Phosphatase 53 U/L (38-126); Blood Urea Nitrogen 24 mg/dl (7-17); Calcium 9.6 mg/dl (8.4-10.2); Carbon Dioxide 34 mmol/L (22-30); Chloride 101 mmol/L (98-107); Estimated Creatinine Clearance 63 ml/min; Glucose 143 mg/dl (70-99); Potassium 5.3 mmol/L (3.5-5.1); Sodium 138 mmol/L (135-145); Total Bilirubin 0.4 mg/dl (0.2-1.3); Total Protein 7.2 g/dl (6.3-8.2); eGFR > 60.00
[2023-09-27] MEDS: COZAAR 25 MG PO (08:54)
[2023-09-27] MEDS: ASPIR LOW (ENTERIC COATED) 81 MG PO (08:54)
[2023-09-27] MEDS: VITAMIN B-12 1000 MCG PO (08:54)
[2023-09-27] MEDS: ZITHROMAX 500 MG PO (08:54)
[2023-09-27] MEDS: MUCINEX 600 MG PO ×2 (08:54→19:57)
[2023-09-27] MEDS: PLAVIX 75 MG PO (08:55)
[2023-09-27] MEDS: PROTONIX 20 MG PO (08:55)
--- NOTE | 2023-09-27 10:07 | CM ---
Patient seen bedside, discussed PT recommendation of home health. Patient agreeable to referral to [facility]. CM will send referral in [facility]. CM will continue to follow for discharge planning needs.
Plan; home with [facility] pending acceptance.
--- NOTE | 2023-09-27 10:47 | W.PN.ID1 ---
Date of Service
Date of Service: September 27, 2023
Today's Communication
Continue azithromycin.
Assessment / Plan
# Viral URI
-sneezing, rhinorrhea, dry cough, multiple ill contacts family members with URI
-Supportive care.
# Bronchiectasis exacerbation, triggered by viral URI
- Oxygen requirement decreased, now 3L
- currently on steroid
- Can continue azithromycin (d3) for anti-inflammatory effect
# Pulmonary MAC s/p lung resection (2012) and treated in the past.
- Per patient no worsening symptoms since off therapy.
-Recommend observation only.
Additional Past Medical History:
CAD s/p stents
HTN
HLD
TAVR
GERD
hypothyroidism
bronchiectasis, lung scarring
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
Chief Complaint
-: Other (Viral URI)
Subjective / Review of Systems
Feels a bit better. Mouth is dry.
Vital Signs / Physical Exam
Vital Signs
Vital Signs
Temp Pulse Resp BP Pulse Ox
97.9 F 81 15 141/65 94
09/27/23 07:00 09/27/23 08:54 09/27/23 07:15 09/27/23 08:54 09/27/23 10:35
Physical Exam
Constitutional: No Acute Distress
Pulmonary: Negative Rales
Gastrointestinal: Soft, Non Tender and Non Distended
Objective Data
Lab Data
Lab Results
09/27/23 06:54
09/27/23 06:54
Estimated Creat Clear 63 ml/min 09/27/23 06:54
Total Bilirubin 0.4 mg/dl (0.2-1.3) 09/27/23 06:54
AST 36 U/L (14-36) 09/27/23 06:54
ALT 23 U/L (0-35) 09/27/23 06:54
Alkaline Phosphatase 53 U/L (38-126) 09/27/23 06:54
Most recent labs reviewed.
Micro Results:
09/25/23 12:56 Streptococcus Screen (GT) - Preliminary
Throat/Pharynx Culture in Progress
Streptococcus Rapid Screen - Final
Rapid Strep Screen (Group A) Negative
09/25/23 08:42 Influenza Types A & B (ABILIO) - Final
Nasal Swab Negative for Influenza A & B, NAAT
Negative results must be combined with clinical observations
and patient history.
Nucleic Acid Amplification test (NAAT)performed on the
[employer] platform.
09/25/23 CXR: Worsening aeration of the lung bases anteriorly right greater than left, consistent with superimposed pneumonic process in a patient with chronic lung changes
--- NOTE | 2023-09-27 12:39 | PN.CDI ---
CDI
- -
CDI:
Physician Documentation Request
Admit Date: 09/25/23 12:57
Dear Doctor Charli,
Patient admitted with respiratory failure 'e 08/31 Viral URI (likely) vs. PNA right lung (unlikely)'
09/25 WBC 8.2
Patient has remained afebrile
09/25 documented heart rate 91-108
09/25 presenting respiratory rate 30
Please clarify which of the following most accurately describes the status of the patient's infection:
Sepsis
- Systemic manifestations of infection, with 2 or more SIRS criteria which include:
- Fever >100.4 degrees F or hypothermia < 96.8 degrees F
- Leukocytosis - WBC > 12,000 or leukopenia - WBC < 4,000 or > 10% bands
- Tachycardia > 90 beats per minute
- Tachypnea - RR > 20 breaths per minute or PaCO2 , 32mmHg
Source: Merck Manual 2013
Localized Infection Only, Without Systemic Illness
Other
Use of terms such as suspected, likely, concern for, or probable (associated with a specific diagnosis that is being evaluated, monitored, or treated as if it exists) are acceptable and can be coded in the inpatient setting, when documented at the
time of discharge.
Thank you,
Maday Huerta RN, BSN
CDI Specialist
tiger text
Please use your independent medical judgment in providing your response.
--- NOTE | 2023-09-27 14:24 | W.PN.PUL3 ---
Today's Communication / Plan
-
Transition to nebulized therapy
DuoNebs
Pulmicort
Hold inhalers-poor technique with coughing
Decrease dexamethasone
Assessment
-
-
Cough/bronchitis-respiratory sufficiency.
Bronchospasm
Suspect Bronchiectasis exacerbation- tracheobronchitis, post viral infection.
Conditions present prior admission:
Chronic, multifactorial including: Deconditioning, COPD, underlying bronchiectasis with post inflammatory scarring.CT chest: Improved groundglass opacities, Chronic bronchiectasis noted. Minimal 3 in bud opacities bilaterally.
History of MAC infection diagnosed in 2008, treated with antibiotics [id number]. Repeat sputum cultures were negative per prior engineer second assistant report. No indication of active infection. Continue to monitor.Repeat CT chest 04/2023:Showed improvement on
acute pneumonia. There is chronic bronchiectasis.
Now Following locally with Dr. Sims last seen 09/10/2023
Moderate obstructive lung disease on pulmonary function testing 09/10/2023.
Chronically on ANORO
Coronary artery disease
Hypertension
Hyperlipidemia
History of aortic valve replacement
Cardiac stents
GERD
Hypothyroidism
CT chest 05/10/2023:
1. Chronic scarring and bronchiectasis within the right middle lobe. Chronic scarring at the left lung apex. Scattered foci of tree-in-bud opacities. Overall, findings are most suggestive of chronic indolent infection such as ESTELLA. Mild interstitial
fibrosis remains in the differential diagnosis.
2. Groundglass opacities seen on prior CT dated 02/27/2023 has significantly improved, and nearly resolved.
3. Moderate calcification of the LAD. Please correlate with symptoms of and risk factors for coronary artery disease, with further workup as clinically appropriate.
4. Small hiatal hernia, without evidence of incarceration.
5. Cholelithiasis without evidence of acute cholecystitis.
Assessment and plan:
Clinical picture more consistent with viral infection, exacerbated bronchiectasis due to this viral infection.
-
Continues to report chest congestion/coughing 09/27/2023.
Continues to feel fatigued and tired.
Decrease dexamethasone to 4 mg IV every 8 hours.
Infectious disease correspondence reviewed: No need for additional antibiotics.
Continue azithromycin. For anti-inflammatory properties.
-
Continue azithromycin at a low dose prescribed by Dr. Sims for anti-inflammatory properties. dose after discharge should be 250 mg Uzndya-Ocknhlgdm-Cycoqf
Patient usually on ANORO in the outpatient setting, trying to avoid inhaled corticosteroids due to increased risk of recurrent infection/ESTELLA.
Patient states that she is coughing significantly, hold inhalers.
-
Given ongoing symptoms, significant coughing.
Discontinue inhalers
Discontinue albuterol nebulizers
Start DuoNebs 4 times a day
Start Pulmicort twice a day
May need to discharge on these medications temporarily until she improved.
-
Acapella device for secretion clearance
Antitussive
Mucolytic's
-
Last appointment 09/10/2023: Recurrent ESTELLA was not highly suspected.
Eventually will obtain repeat a sputum culture
Overall her latest CT of the chest shows significant improvement on bilateral infiltrates. She has chronic changes.
Her symptoms have been stable after ESTELLA therapy.
I will continue to observe in the outpatient setting.
-
Will continue to follow
Not ready for discharge.
Subjective Data
-
Date of Service:
Date of Service: September 27, 2023
Chief Complaint: Pulmonary Follow Up (Acute respiratory insufficiency-acute bronchiectasis exacerbation.)
Subjective:
Still symptomatic, significant cough paroxysms
Chest congestion.
Denies hemoptysis
Denies fevers.
Review of Systems
General: Fever (n)
Cardiopulmonary: Dyspnea (none at rest)
GI: Abdominal Pain (n) and Nausea (n)
Objective Data
Data Reviewed
Vital Signs / I&O / Oxygen:
Vital Signs
Temp Pulse Resp BP Pulse Ox
97.9 F 82 14 141/65 94
09/27/23 07:00 09/27/23 11:27 09/27/23 11:27 09/27/23 08:54 09/27/23 11:27
Intake and Output
09/26/23 09/27/23 09/28/23
06:59 06:59 06:59
Intake Total 970 / 970 1200 / 1200
Balance 970 / 970 1200 / 1200
SaO2 94
Nasal Cannula flow liters per 3
minute
Physical Exam
General: Respiratory Distress (n) and Comfortable
HEENT: Normocephalic
Cardiovascular: S1-S2 and Regular Rhythm
Respiratory: Wheeze (Bilateral expiratory)
GI: Soft and Non Distended
Neurology: Awake and Alert
Skin: Warm
Labs/Micro/Reports
Lab Data
09/27/23 06:54
09/27/23 06:54
Microbiology
09/25/23 12:56 Throat/Pharynx Streptococcus Screen (GT) - Final
No Beta Hemolytic Streptococci Isolated
09/25/23 12:56 Throat/Pharynx Streptococcus Rapid Screen - Final
Rapid Strep Screen (Group A) Negative
09/25/23 08:42 Nasal Swab Influenza Types A & B (ABILIO) - Final
Negative for Influenza A & B, NAAT
Negative results must be combined with clinical observations
and patient history.
Nucleic Acid Amplification test (NAAT)performed on the
[employer] platform.
[2023-09-27 15:00] VITALS: BP 141/63
[2023-09-27] MEDS: DUONEB 3 ML INH ×2 (15:05→19:28)
--- NOTE | 2023-09-27 16:32 | W.PN.HOSP.TC ---
Today's Communication/Plan
-
Decreased IV steroid frequency
Doing better
Probable discharge in 1 to 2 days
Assessment / Plan
Assessment / Plan
Physical Exam
General: Not in acute distress
HEENT: Normocephalic
Cardiovascular: S1/S2. RRR.
Respiratory: Wheezes present - NOW ON 3 L of NC OXYGEN (DOWN FROM 6 L)
GI: Soft and Non Distended. Positive bowel sounds.
Neurology: Awake, AO x 3 and No Motor Deficits
Skin: Warm and dry
Assessment/Plan
#Acute on chronic hypoxic respiratory failure 2/2 Viral URI (likely) vs. PNA right lung (unlikely)
#Localized Infection Only, Without Systemic Illness
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
#History of Mycobacterium AVM complex
#Bronchiectasis
#Pulm MAC treated in the past plus lung resection (previously followed at [facility] but physician retiring and now following Dr. Cobb who started Azithromycin [facility]),
#COPD
-Patient recently had multiple family members recently visiting who were ill
-COVID/flu negative
-DuoNebs scheduled and as needed
-Prior pulmonary Dr elias parra Pulm at [facility] for MAC
-Now follows with [facility] is on chronic Zithromax every other day started 2 weeks ago in August
-Now IV Decadron decreased to 4 mg every 8 hours from every 6 hours
-Continue secretion clearance interventions
-Follow sputum culture, blood cultures x 2
-DuoNebs and Pulmicort
-May need to discharge on the following breathing treatment regimen until patient is improved: 1) Discontinue inhalers. 2)Discontinue albuterol nebulizers. 3) Continue DuoNebs 4 times a day. 4) Continue Pulmicort twice a day.
-No antibiotics except for Zithromax for anti-inflammatory effect (Azithromycin dose after discharge should be 250 mg Zzfdwt-Vtfgjfohl-Nfwfyv)
-Continue home Anoro Ellipta - trying to avoid inhaled corticosteroids due to increased risk of recurrent infection/ESTELLA
-Consulted pulmonary, recommendations appreciated
-Consulted ID, recommendations appreciated
-PT/OT/case management consult
�� CXR: Worsening aeration of the lungs anteriorly right greater than left consistent with superimposed pneumonic process in a patient with chronic lung changes
�� EKG: NSR 97 bpm, QTc 449 MS no significant change from January 2023
#Hyperglycemia�mild
BS 145 ,check HgbA1c
Healthy heart 2199 ADA diet
Monitor while on steroids
#Hyperkalemia
-On ARB for blood pressure
-Monitor potassium
#Hypertension-benign
-Continue losartan
#Hyperlipidemia
Continue Crestor
#CAD/cardiac stents
-Continue Plavix, aspirin
#TAVR hx
#GERD
-Continue Protonix
#Hypothyroidism
-Continue levothyroxine
DVT prophylaxis
-Subcu Lovenox
DNR per patient
Anticipated Discharge: 24 - 48 hours
Subjective/Interval History
-
Date of Service: September 27, 2023
Patient was seen and examined. She reports feeling much better today, appeared to breathing easier today.
Objective Data
-
Labs:
Laboratory Results
09/27/23 09/27/23
06:54 20:00
WBC 8.0
Hgb 12.8
Hct 39.6
Plt Count 209
Sodium 138 Pending
Potassium 5.3 H Pending
Chloride 101 Pending
Carbon Dioxide 34 H Pending
BUN 24 H Pending
Creatinine 0.7 Pending
Glucose 143 H Pending
Calcium 9.6 Pending
Total Bilirubin 0.4
AST 36
ALT 23
Alkaline Phosphatase 53
Vital Signs:
Vital Signs
Temp Pulse Resp BP Pulse Ox
97.9 F 96 20 141/63 93
09/27/23 15:00 09/27/23 15:00 09/27/23 15:00 09/27/23 15:00 09/27/23 15:00
I&O
09/26/23 09/27/23 09/28/23
06:59 06:59 06:59
Intake Total 970 / 970 1200 / 1200
Balance 970 / 970 1200 / 1200
[2023-09-27] MEDS: ANESTHETIC LOZENGE 1 LOZENGE PO (16:36)
[2023-09-27] MEDS: LOVENOX 40 MG SC (17:05)
[2023-09-27] MEDS: PULMICORT 0.5 MG INH (19:29)
[2023-09-27] MEDS: MAG-TAB SR 84 MG PO (19:57)
[2023-09-27] MEDS: OSCAL CAL 500 1000 MG PO (19:57)
[2023-09-27] MEDS: CRESTOR 20 MG PO (19:57)
[2023-09-27] MEDS: VITAMIN C 1000 MG PO (19:59)
[2023-09-27 20:34] LABS: Blood Urea Nitrogen 28 mg/dl (7-17); Calcium 9.5 mg/dl (8.4-10.2); Carbon Dioxide 33 mmol/L (22-30); Chloride 96 mmol/L (98-107); Estimated Creatinine Clearance 63 ml/min; Glucose 238 mg/dl (70-99); Potassium 4.8 mmol/L (3.5-5.1); Sodium 138 mmol/L (135-145); eGFR > 60.00
[2023-09-27 23:49] VITALS: BP 120/50
[2023-09-28] MEDS: DECADRON 4 MG IV ×3 (00:39→20:26)
[2023-09-28] MEDS: SYNTHROID 88 MCG PO (04:54)
[2023-09-28] MEDS: DUONEB 3 ML INH ×4 (07:13→20:04)
[2023-09-28] MEDS: PULMICORT 0.5 MG INH ×2 (07:14→20:04)
[2023-09-28 08:00] VITALS: BP 133/52
[2023-09-28 08:10] LABS: % Basophils 0.2 % (0-2); % Immature Granulocytes 0.5 % (0-0.5); % Monocytes 7.2 % (1.7-9.3); % Neutrophils 74.1 % (42.2-75.2); Absolute Immature Granulocytes 0.1 10^3/uL (0-0.05); Absolute Lymphocytes 1.7 10^3/uL (1.2-3.4); Absolute Monocytes 0.7 10^3/uL (0.1-0.6); Hematocrit 39.3 % (37.0-47.0); Hemoglobin 12.5 g/dL (12.0-16.0); Mean Corp Hgb Conc. 31.8 g/dL (33.0-37.0); Mean Corpuscular Hgb 30.3 pg (27.0-31.0); Mean Corpuscular Volume 95.4 fL (81.0-99.0); Mean Platelet Volume 9.3 fL (7.4-10.4); Nucleated Red Blood Cells % 0 %; Platelet Count 233 10^3/uL (130-400); Red Blood Cell Count 4.12 10^6/uL (4.20-5.40); Red Cell Dist. Width 14.2 % (11.5-14.5); White Blood Cell Count 9.4 10^3/uL (4.8-10.8)
[2023-09-28] MEDS: PLAVIX 75 MG PO (08:23)
[2023-09-28] MEDS: COZAAR 25 MG PO (08:23)
[2023-09-28] MEDS: ZITHROMAX 500 MG PO (08:23)
[2023-09-28] MEDS: ASPIR LOW (ENTERIC COATED) 81 MG PO (08:23)
[2023-09-28] MEDS: MUCINEX 600 MG PO ×2 (08:23→20:25)
[2023-09-28] MEDS: PROTONIX 20 MG PO (08:23)
[2023-09-28] MEDS: VITAMIN B-12 1000 MCG PO (08:23)
[2023-09-28 08:49] LABS: ALT (SGPT) 25 U/L (0-35); AST (SGOT) 34 U/L (14-36); Albumin 4.1 g/dl (3.5-5.0); Alkaline Phosphatase 54 U/L (38-126); Blood Urea Nitrogen 27 mg/dl (7-17); Calcium 9.5 mg/dl (8.4-10.2); Carbon Dioxide 33 mmol/L (22-30); Chloride 97 mmol/L (98-107); Estimated Creatinine Clearance 63 ml/min; Glucose 149 mg/dl (70-99); Potassium 4.7 mmol/L (3.5-5.1); Sodium 138 mmol/L (135-145); Total Bilirubin 0.4 mg/dl (0.2-1.3); Total Protein 7.2 g/dl (6.3-8.2); eGFR > 60.00
--- NOTE | 2023-09-28 08:56 | W.PN.ID1 ---
Date of Service
Date of Service: September 28, 2023
Today's Communication
At time of disccharge can resume lower dose of azithromycin 250mg po MWF.
Assessment / Plan
# Viral URI
-sneezing, rhinorrhea, dry cough, multiple ill contacts family members with URI
-Supportive care.
# Bronchiectasis exacerbation, triggered by viral URI
- Oxygen requirement decreased, now 2L
- currently on steroid
- azithromycin (d4) for anti-inflammatory effect
- At time of disccharge can resume lower dose of azithromycin 250mg po MWF.
# Pulmonary MAC s/p lung resection (2012) and treated in the past.
- Per patient no worsening symptoms since off therapy.
-Recommend observation only.
Additional Past Medical History:
CAD s/p stents
HTN
HLD
TAVR
GERD
hypothyroidism
bronchiectasis, lung scarring
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
Chief Complaint
-: Other (Viral URI)
Subjective / Review of Systems
Oxygen dropped when off oxygen to go to restroom. Cough/SOB better. No sputum.
Vital Signs / Physical Exam
Vital Signs
Vital Signs
Temp Pulse Resp BP Pulse Ox
97.6 F 81 20 133/52 93
09/28/23 08:00 09/28/23 08:23 09/28/23 08:00 09/28/23 08:23 09/28/23 08:00
Physical Exam
Constitutional: No Acute Distress
Pulmonary: Non Labored; Negative Rales or Coarse
Gastrointestinal: Soft and Non Distended
Objective Data
Lab Data
Lab Results
09/28/23 07:53
09/28/23 07:53
Estimated Creat Clear 63 ml/min 09/28/23 07:53
Total Bilirubin 0.4 mg/dl (0.2-1.3) 09/28/23 07:53
AST 34 U/L (14-36) 09/28/23 07:53
ALT 25 U/L (0-35) 09/28/23 07:53
Alkaline Phosphatase 54 U/L (38-126) 09/28/23 07:53
Most recent labs reviewed.
Micro Results:
09/25/23 12:56 Streptococcus Screen (GT) - Final
Throat/Pharynx No Beta Hemolytic Streptococci Isolated
Streptococcus Rapid Screen - Final
Rapid Strep Screen (Group A) Negative
09/25/23 08:42 Influenza Types A & B (ABILIO) - Final
Nasal Swab Negative for Influenza A & B, NAAT
Negative results must be combined with clinical observations
and patient history.
Nucleic Acid Amplification test (NAAT)performed on the
[employer] platform.
09/25/23 CXR: Worsening aeration of the lung bases anteriorly right greater than left, consistent with superimposed pneumonic process in a patient with chronic lung changes
[2023-09-28 10:48] VITALS: BP 134/52; PULSE 84; O2SAT 95
--- NOTE | 2023-09-28 14:22 | W.PN.PUL3 ---
Today's Communication / Plan
-
Continue nebulizer therapy DuoNebs/Pulmicort until seen in our office
Decrease dexamethasone-transition to prednisone tomorrow
Azithromycin for anti-inflammatory properties
Secretion clearance intervention
Hopefully discharge in the next 24 hours if she continues to improve
Assessment
-
78-year-old woman with known from my outpatient office for bronchiectasis, came to the hospital complaining of coughing and wheezing. Found to be bronchospastic. Possibly triggered by a viral infection. She had some visitors from out of town that
came with a viral infection prior to admission to the hospital.
-
Cough/bronchitis-respiratory sufficiency.
Bronchospasm
Suspect Bronchiectasis exacerbation- tracheobronchitis, post viral infection.
Conditions present prior admission:
Chronic, multifactorial including: Deconditioning, COPD, underlying bronchiectasis with post inflammatory scarring.CT chest: Improved groundglass opacities, Chronic bronchiectasis noted. Minimal 3 in bud opacities bilaterally.
History of MAC infection diagnosed in 2008, treated with antibiotics [id number]. Repeat sputum cultures were negative per prior art history professor report. No indication of active infection. Continue to monitor.Repeat CT chest 04/2023:Showed improvement on
acute pneumonia. There is chronic bronchiectasis.
Now Following locally with Dr. Sims last seen 09/10/2023
Moderate obstructive lung disease on pulmonary function testing 09/10/2023.
Chronically on ANORO
Coronary artery disease
Hypertension
Hyperlipidemia
History of aortic valve replacement
Cardiac stents
GERD
Hypothyroidism
CT chest 05/10/2023:
1. Chronic scarring and bronchiectasis within the right middle lobe. Chronic scarring at the left lung apex. Scattered foci of tree-in-bud opacities. Overall, findings are most suggestive of chronic indolent infection such as ESTELLA. Mild interstitial
fibrosis remains in the differential diagnosis.
2. Groundglass opacities seen on prior CT dated 02/27/2023 has significantly improved, and nearly resolved.
3. Moderate calcification of the LAD. Please correlate with symptoms of and risk factors for coronary artery disease, with further workup as clinically appropriate.
4. Small hiatal hernia, without evidence of incarceration.
5. Cholelithiasis without evidence of acute cholecystitis.
Assessment and plan:
Clinical picture more consistent with viral infection, exacerbated bronchiectasis due to this viral infection.
-
Clinically improving.
Cough is better
Bronchospasm better
Overall patient subjectively feels better.
Decrease dexamethasone to 4 mg IV every 12 hours. Transition to prednisone tomorrow if she continues to improve.
Infectious disease correspondence reviewed: No need for additional antibiotics.
Continue azithromycin. For anti-inflammatory properties.
-
Continue azithromycin at a low dose prescribed by Dr. Sims for anti-inflammatory properties. dose after discharge should be 250 mg Owxmqf-Xbagdafei-Luivsz
Patient usually on ANORO in the outpatient setting, trying to avoid inhaled corticosteroids due to increased risk of recurrent infection/ESTELLA.
Patient states that she is coughing significantly, hold inhalers.
-
Given ongoing symptoms, significant coughing.
Discontinued inhalers
Discontinue albuterol nebulizers
Start DuoNebs 4 times a day
Start Pulmicort twice a day
Recommend to discharge on these medications temporarily until she improved. She has nebulizer at home.
-
Acapella device for secretion clearance
Antitussive
Mucolytic's
-
Last appointment 09/10/2023: Recurrent ESTELLA was not highly suspected.
Eventually will obtain repeat a sputum culture
Overall her latest CT of the chest shows significant improvement on bilateral infiltrates. She has chronic changes.
Her symptoms have been stable after ESTELLA therapy.
I will continue to observe in the outpatient setting.
-
Will continue to follow
Hopefully discharge in the next 24 hours if she continues to improve.
Short-term follow-up with Dr. Sims after discharge.
Subjective Data
-
Date of Service:
Date of Service: September 28, 2023
Chief Complaint: Pulmonary Follow Up (Acute respiratory insufficiency-acute bronchiectasis exacerbation.)
Subjective:
Overall feeling better
Less cough
Less congestion
Review of Systems
Cardiopulmonary: Dyspnea (improving) and Cough (improving)
Objective Data
Data Reviewed
Vital Signs / I&O / Oxygen:
Vital Signs
Temp Pulse Resp BP Pulse Ox
97.6 F 86 14 133/52 93
09/28/23 08:00 09/28/23 11:33 09/28/23 11:33 09/28/23 08:23 09/28/23 08:00
Intake and Output
09/27/23 09/28/23 09/29/23
06:59 06:59 06:59
Intake Total 1200 / 1200 1680 / 1680
Balance 1200 / 1200 1680 / 1680
SaO2 93
Nasal Cannula flow liters per 2
minute
Physical Exam
General: Respiratory Distress (n) and Comfortable
HEENT: Normocephalic
Cardiovascular: S1-S2 and Regular Rhythm
Respiratory: Wheeze (Bilateral expiratory- Improving)
GI: Soft and Non Distended
Neurology: Awake and Alert
Skin: Warm
Labs/Micro/Reports
Lab Data
09/28/23 07:53
09/28/23 07:53
Microbiology
09/25/23 12:56 Throat/Pharynx Streptococcus Screen (GT) - Final
No Beta Hemolytic Streptococci Isolated
09/25/23 12:56 Throat/Pharynx Streptococcus Rapid Screen - Final
Rapid Strep Screen (Group A) Negative
09/25/23 08:42 Nasal Swab Influenza Types A & B (ABILIO) - Final
Negative for Influenza A & B, NAAT
Negative results must be combined with clinical observations
and patient history.
Nucleic Acid Amplification test (NAAT)performed on the
[employer] platform.
--- NOTE | 2023-09-28 15:14 | CM ---
Chart reviewed
Cont to wean oxygen and steroids
Will need respiratory home oxygen assessment
Plan - home with FILEMON Chavez, cont to follow for home O2 needs
[2023-09-28 15:48] VITALS: BP 152/62
--- NOTE | 2023-09-28 16:37 | W.PN.HOSP.TC ---
Today's Communication/Plan
-
Hopefully can wean off oxygen and discharge home on oral prednisone tomorrow
Assessment / Plan
Assessment / Plan
Physical Exam
General: Not in acute distress
HEENT: Normocephalic
Cardiovascular: S1/S2. RRR.
Respiratory: Wheezes present - NOW ON 2 L of NC OXYGEN (DOWN FROM 6 L, THEN 3 L)
GI: Soft and Non Distended. Positive bowel sounds.
Neurology: Awake, AO x 3 and No Motor Deficits
Skin: Warm and dry
Assessment/Plan
#Acute on chronic hypoxic respiratory failure 2/2 Viral URI (likely) vs. PNA right lung (unlikely)
#Localized Infection Only, Without Systemic Illness
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
#History of Mycobacterium AVM complex
#Bronchiectasis
#Pulm MAC treated in the past plus lung resection (previously followed at [facility] but physician retiring and now following Dr. Cobb who started Azithromycin [facility]),
#COPD
-Patient recently had multiple family members recently visiting who were ill
-COVID/flu negative
-DuoNebs scheduled and as needed
-Prior pulmonary Dr elias parra Pulm at [facility] for MAC
-Now follows with [facility] is on chronic Zithromax every other day started 2 weeks ago in August
-Now IV Decadron decreased to 4 mg every 12 hours from every 8 hours from every 6 hours
-Continue secretion clearance interventions
-Follow sputum culture, blood cultures x 2
-DuoNebs and Pulmicort
-May need to discharge on the following breathing treatment regimen until patient is improved: 1) Discontinue inhalers. 2)Discontinue albuterol nebulizers. 3) Continue DuoNebs 4 times a day. 4) Continue Pulmicort twice a day.
-No antibiotics except for Zithromax for anti-inflammatory effect (Azithromycin dose after discharge should be 250 mg Uasblq-Qryvgvjsp-Ntlzyg)
-Continue home Anoro Ellipta - trying to avoid inhaled corticosteroids due to increased risk of recurrent infection/ESTELLA
-Consulted pulmonary, recommendations appreciated
-Consulted ID, recommendations appreciated
-PT/OT/case management consult
�� CXR: Worsening aeration of the lungs anteriorly right greater than left consistent with superimposed pneumonic process in a patient with chronic lung changes
�� EKG: NSR 97 bpm, QTc 449 MS no significant change from January 2023
#Hyperglycemia�mild
BS 145 ,check HgbA1c
Healthy heart 0 ADA diet
Monitor while on steroids
#Hyperkalemia - RESOLVED
-On ARB for blood pressure
-Monitor potassium
#Hypertension-benign
-Continue losartan
#Hyperlipidemia
Continue Crestor
#CAD/cardiac stents
-Continue Plavix, aspirin
#TAVR hx
#GERD
-Continue Protonix
#Hypothyroidism
-Continue levothyroxine
DVT prophylaxis
-Subcu Lovenox
DNR per patient
Anticipated Discharge: Within 24 hours
Subjective/Interval History
-
Date of Service: September 28, 2023
Patient was seen and examined. She was sleeping comfortably at the time she was seen, her daughter was present in the room, and patient's case was discussed with patient's daughter.
Objective Data
-
Labs:
Laboratory Results
09/28/23
07:53
WBC 9.4
Hgb 12.5
Hct 39.3
Plt Count 233
Sodium 138
Potassium 4.7
Chloride 97 L
Carbon Dioxide 33 H
BUN 27 H
Creatinine 0.7
Glucose 149 H
Calcium 9.5
Total Bilirubin 0.4
AST 34
ALT 25
Alkaline Phosphatase 54
Vital Signs:
Vital Signs
Temp Pulse Resp BP Pulse Ox
97.5 F 94 20 152/62 95
09/28/23 15:48 09/28/23 15:48 09/28/23 15:48 09/28/23 15:48 09/28/23 15:48
I&O
09/27/23 09/28/23 09/29/23
06:59 06:59 06:59
Intake Total 1200 / 1200 1680 / 1680
Balance 1200 / 1200 1680 / 1680
[2023-09-28] MEDS: LOVENOX 40 MG SC (17:39)
[2023-09-28] MEDS: CRESTOR 20 MG PO (20:25)
[2023-09-28] MEDS: MAG-TAB SR 84 MG PO (20:26)
[2023-09-28] MEDS: VITAMIN C 1000 MG PO (20:26)
[2023-09-28] MEDS: OSCAL CAL 500 1000 MG PO (20:27)
[2023-09-28 23:55] VITALS: BP 128/56
[2023-09-29] MEDS: SYNTHROID 88 MCG PO (05:44)
[2023-09-29 07:59] VITALS: BP 139/61
[2023-09-29] MEDS: DUONEB 3 ML INH ×4 (08:02→19:16)
[2023-09-29] MEDS: PULMICORT 0.5 MG INH ×2 (08:02→19:16)
[2023-09-29 08:16] LABS: % Basophils 0.1 % (0-2); % Immature Granulocytes 0.6 % (0-0.5); % Lymphocytes 21.2 % (20.5-51.1); % Monocytes 6.4 % (1.7-9.3); % Neutrophils 71.7 % (42.2-75.2); Absolute Immature Granulocytes 0.1 10^3/uL (0-0.05); Absolute Lymphocytes 2.1 10^3/uL (1.2-3.4); Absolute Monocytes 0.6 10^3/uL (0.1-0.6); Absolute Neutrophils 6.9 10^3/uL (1.4-6.5); Hematocrit 38.6 % (37.0-47.0); Hemoglobin 12.4 g/dL (12.0-16.0); Mean Corp Hgb Conc. 32.1 g/dL (33.0-37.0); Mean Corpuscular Hgb 30.8 pg (27.0-31.0); Mean Platelet Volume 9.7 fL (7.4-10.4); Nucleated Red Blood Cells % 0 %; Platelet Count 232 10^3/uL (130-400); Red Blood Cell Count 4.02 10^6/uL (4.20-5.40); Red Cell Dist. Width 13.9 % (11.5-14.5); White Blood Cell Count 9.7 10^3/uL (4.8-10.8)
[2023-09-29] MEDS: PLAVIX 75 MG PO (08:36)
[2023-09-29] MEDS: PROTONIX 20 MG PO (08:36)
[2023-09-29] MEDS: VITAMIN B-12 1000 MCG PO (08:36)
[2023-09-29] MEDS: COZAAR 25 MG PO (08:36)
[2023-09-29] MEDS: ASPIR LOW (ENTERIC COATED) 81 MG PO (08:36)
[2023-09-29] MEDS: MUCINEX 600 MG PO ×2 (08:36→19:56)
[2023-09-29] MEDS: ZITHROMAX 500 MG PO (08:36)
[2023-09-29] MEDS: DECADRON 4 MG IV ×2 (08:37→19:56)
[2023-09-29 09:20] LABS: ALT (SGPT) 24 U/L (0-35); AST (SGOT) 28 U/L (14-36); Albumin 4.1 g/dl (3.5-5.0); Alkaline Phosphatase 52 U/L (38-126); Blood Urea Nitrogen 27 mg/dl (7-17); Calcium 9.2 mg/dl (8.4-10.2); Carbon Dioxide 34 mmol/L (22-30); Chloride 97 mmol/L (98-107); Estimated Creatinine Clearance 63 ml/min; Glucose 139 mg/dl (70-99); Potassium 4.7 mmol/L (3.5-5.1); Sodium 137 mmol/L (135-145); Total Bilirubin 0.4 mg/dl (0.2-1.3); Total Protein 6.9 g/dl (6.3-8.2); eGFR > 60.00
--- NOTE | 2023-09-29 10:16 | CM ---
Chart reviewed and patient is for possible discharge to home, patient is currently 96% on 2 liters of oxygen, needs home oxygen testing, patient has been set up with [facility] visiting nurses.
Kathy
[phone]
[2023-09-29 15:34] VITALS: BP 134/62
--- NOTE | 2023-09-29 16:50 | W.PN.PUL3 ---
Today's Communication / Plan
-
Continue nebulizer therapy DuoNebs/Pulmicort until seen in our office
Decrease dexamethasone-transition to prednisone (see below for details)
Azithromycin for anti-inflammatory properties
Secretion clearance intervention
Hopefully discharge home tomorrow if she continues to improve
Assessment
-
78-year-old woman with known from my outpatient office for bronchiectasis, came to the hospital complaining of coughing and wheezing. Found to be bronchospastic. Possibly triggered by a viral infection. She had some visitors from out of town that
came with a viral infection prior to admission to the hospital.
-
Cough/bronchitis-respiratory sufficiency.
Bronchospasm
Suspect Bronchiectasis exacerbation- tracheobronchitis, post viral infection.
Conditions present prior admission:
Chronic, multifactorial including: Deconditioning, COPD, underlying bronchiectasis with post inflammatory scarring.CT chest: Improved groundglass opacities, Chronic bronchiectasis noted. Minimal 3 in bud opacities bilaterally.
History of MAC infection diagnosed in 2008, treated with antibiotics [id number]. Repeat sputum cultures were negative per prior sausage stuffer report. No indication of active infection. Continue to monitor.Repeat CT chest 04/2023:Showed improvement on
acute pneumonia. There is chronic bronchiectasis.
Now Following locally with Dr. Sims last seen 09/10/2023
Moderate obstructive lung disease on pulmonary function testing 09/10/2023.
Chronically on ANORO
Coronary artery disease
Hypertension
Hyperlipidemia
History of aortic valve replacement
Cardiac stents
GERD
Hypothyroidism
CT chest 05/10/2023:
1. Chronic scarring and bronchiectasis within the right middle lobe. Chronic scarring at the left lung apex. Scattered foci of tree-in-bud opacities. Overall, findings are most suggestive of chronic indolent infection such as ESTELLA. Mild interstitial
fibrosis remains in the differential diagnosis.
2. Groundglass opacities seen on prior CT dated 02/27/2023 has significantly improved, and nearly resolved.
3. Moderate calcification of the LAD. Please correlate with symptoms of and risk factors for coronary artery disease, with further workup as clinically appropriate.
4. Small hiatal hernia, without evidence of incarceration.
5. Cholelithiasis without evidence of acute cholecystitis.
Assessment and plan:
Clinical picture more consistent with viral infection, exacerbated bronchiectasis due to this viral infection.
-
Clinically improving.
Cough is better
Bronchospasm better
Overall patient subjectively feels better.
On 09/27 we decreased dexamethasone to 4 mg IV every 12 hours. Transition to prednisone tomorrow if she continues to improve and start 50mg daily andn reduce by 10mg every 3rd day until off.
Infectious disease correspondence reviewed: No need for additional antibiotics.
Continue azithromycin. For anti-inflammatory properties.
-
Continue azithromycin at a low dose prescribed by Dr. Sims for anti-inflammatory properties. dose after discharge should be 250 mg [id number]
Patient usually on ANORO in the outpatient setting, trying to avoid inhaled corticosteroids due to increased risk of recurrent infection/ESTELLA.
Patient states that she is coughing significantly, hold inhalers.
-
Given ongoing symptoms, significant coughing.
Discontinued inhalers
Discontinue albuterol nebulizers
Continue DuoNebs 4 times a day
Continue Pulmicort twice a day
Recommend to discharge on these medications temporarily until she improved. She has nebulizer at home.
-
Acapella device for secretion clearance
Antitussive
Mucolytics
-
Last appointment 09/10/2023: Recurrent ESTELLA was not highly suspected.
Eventually will obtain repeat a sputum culture
Overall her latest CT of the chest shows significant improvement on bilateral infiltrates. She has chronic changes.
Her symptoms have been stable after ESTELLA therapy.
I will continue to observe in the outpatient setting.
-
Will continue to follow
Hopefully discharge by tomorrow if she continues to improve.
Short-term follow-up with Dr. Sims after discharge.
Pulmonary service will continue to follow along while she remains inpatient.
Subjective Data
-
Date of Service:
Date of Service: September 29, 2023
Chief Complaint: Pulmonary Follow Up (Acute respiratory insufficiency-acute bronchiectasis exacerbation.)
Subjective:
Patient seen at bedside today. She feels better. Still with a dry cough. Currently on 1 L/min nasal cannula. Denies chest pain, headache, fevers or chills.
Review of Systems
General: Other (Negative unless mentioned above.)
Objective Data
Data Reviewed
Vital Signs / I&O / Oxygen:
Vital Signs
Temp Pulse Resp BP Pulse Ox
97.6 F 79 18 134/62 96
09/29/23 15:34 09/29/23 19:19 09/29/23 19:19 09/29/23 15:34 09/29/23 19:19
Intake and Output
09/28/23 09/29/23 09/30/23
06:59 06:59 06:59
Intake Total 1680 / 1680 390 / 390
Balance 1680 / 1680 390 / 390
SaO2 96
Nasal Cannula flow liters per 1
minute
Physical Exam
General: Respiratory Distress (n) and Comfortable
HEENT: Normocephalic and Anicteric
Cardiovascular: S1-S2 and Peripheral Edema (trace KELBY)
Respiratory: Wheeze (negative), Crackles (negative), Rhonchi (negative) and Non-Labored Respirations
GI: Soft, Non Distended, Non Tender and Normal Bowel Sounds
Neurology: AO x 3
Skin: Warm and Dry
Labs/Micro/Reports
Lab Data
09/29/23 07:29
09/29/23 07:29
Microbiology
09/25/23 12:56 Throat/Pharynx Streptococcus Screen (GT) - Final
No Beta Hemolytic Streptococci Isolated
09/25/23 12:56 Throat/Pharynx Streptococcus Rapid Screen - Final
Rapid Strep Screen (Group A) Negative
[2023-09-29] MEDS: LOVENOX 40 MG SC (17:26)
--- NOTE | 2023-09-29 17:50 | W.PN.HOSP.TC ---
Today's Communication/Plan
-
Patient is still needing oxygen and emphasized that she would like to wait and see if she can be take off of oxygen before she is discharged
Assessment / Plan
Assessment / Plan
Physical Exam
General: Not in acute distress
HEENT: Normocephalic
Cardiovascular: S1/S2. RRR.
Respiratory: Wheezes present - NOW ON 2 L of NC OXYGEN (DOWN FROM 6 L, THEN 3 L)
GI: Soft and Non Distended. Positive bowel sounds.
Neurology: Awake, AO x 3 and No Motor Deficits
Skin: Warm and dry
Assessment/Plan
#Acute on chronic hypoxic respiratory failure 2/2 Viral URI (likely) vs. PNA right lung (unlikely)
#Localized Infection Only, Without Systemic Illness
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
#History of Mycobacterium AVM complex
#Bronchiectasis
#Pulm MAC treated in the past plus lung resection (previously followed at [facility] but physician retiring and now following Dr. Cobb who started Azithromycin [facility]),
#COPD
-Patient recently had multiple family members recently visiting who were ill
-COVID/flu negative
-DuoNebs scheduled and as needed
-Prior pulmonary Dr elias parra Pulm at [facility] for MAC
-Now follows with [facility] is on chronic Zithromax every other day started 2 weeks ago in August
-Now IV Decadron decreased to 4 mg every 12 hours from every 8 hours from every 6 hours
-Continue secretion clearance interventions
-Follow sputum culture, blood cultures x 2
-DuoNebs and Pulmicort
-May need to discharge on the following breathing treatment regimen until patient is improved: 1) Discontinue inhalers. 2)Discontinue albuterol nebulizers. 3) Continue DuoNebs 4 times a day. 4) Continue Pulmicort twice a day.
-No antibiotics except for Zithromax for anti-inflammatory effect (Azithromycin dose after discharge should be 250 mg [id number]-Hkckoikhu-Gznnek)
-Continue home Anoro Ellipta - trying to avoid inhaled corticosteroids due to increased risk of recurrent infection/ESTELLA
-Consulted pulmonary, recommendations appreciated
-Consulted ID, recommendations appreciated
-PT/OT/case management consult
�� CXR: Worsening aeration of the lungs anteriorly right greater than left consistent with superimposed pneumonic process in a patient with chronic lung changes
�� EKG: NSR 97 bpm, QTc 449 MS no significant change from January 2023
#Hyperglycemia�mild
BS 145 ,check HgbA1c
Healthy heart 2200 ADA diet
Monitor while on steroids
#Hyperkalemia - RESOLVED
-On ARB for blood pressure
-Monitor potassium
#Hypertension-benign
-Continue losartan
#Hyperlipidemia
Continue Crestor
#CAD/cardiac stents
-Continue Plavix, aspirin
#TAVR hx
#GERD
-Continue Protonix
#Hypothyroidism
-Continue levothyroxine
DVT prophylaxis
-Subcu Lovenox
DNR per patient
Disposition: As of September 29, 2023, patient still needs oxygen, and patient does not want to go home with oxygen and she has no one to care for her at home.
Anticipated Discharge: > 48 hours
Subjective/Interval History
-
Date of Service: September 29, 2023
Patient was seen and examined. Overall she is feeling better, but still needs oxygen based on RT home oxygen assessment test.
Objective Data
-
Labs:
Laboratory Results
09/29/23
07:29
WBC 9.7
Hgb 12.4
Hct 38.6
Plt Count 232
Sodium 137
Potassium 4.7
Chloride 97 L
Carbon Dioxide 34 H
BUN 27 H
Creatinine 0.7
Glucose 139 H
Calcium 9.2
Total Bilirubin 0.4
AST 28
ALT 24
Alkaline Phosphatase 52
Vital Signs:
Vital Signs
Temp Pulse Resp BP Pulse Ox
97.6 F 78 18 134/62 94
09/29/23 15:34 09/29/23 15:34 09/29/23 15:34 09/29/23 15:34 09/29/23 15:34
I&O
09/28/23 09/29/23 09/30/23
06:59 06:59 06:59
Intake Total 1680 / 1680
Balance 1680 / 1680
[2023-09-29] MEDS: CRESTOR 20 MG PO (19:55)
[2023-09-29] MEDS: OSCAL CAL 500 1000 MG PO (19:56)
[2023-09-29] MEDS: MAG-TAB SR 84 MG PO (19:56)
[2023-09-29] MEDS: VITAMIN C 1000 MG PO (19:56)
[2023-09-29 23:50] VITALS: BP 119/61
[2023-09-30] MEDS: SYNTHROID 88 MCG PO (05:59)
[2023-09-30 07:16] VITALS: BP 131/67
[2023-09-30] MEDS: DUONEB 3 ML INH ×4 (07:47→19:46)
[2023-09-30] MEDS: PULMICORT 0.5 MG INH ×2 (07:47→19:46)
[2023-09-30] MEDS: ZITHROMAX 500 MG PO (08:22)
[2023-09-30] MEDS: PLAVIX 75 MG PO (08:22)
[2023-09-30] MEDS: COZAAR 25 MG PO (08:22)
[2023-09-30] MEDS: VITAMIN B-12 1000 MCG PO (08:23)
[2023-09-30] MEDS: ASPIR LOW (ENTERIC COATED) 81 MG PO (08:23)
[2023-09-30] MEDS: DECADRON 4 MG IV ×2 (08:23→20:09)
[2023-09-30] MEDS: MUCINEX 600 MG PO ×2 (08:23→20:08)
[2023-09-30] MEDS: PROTONIX 20 MG PO (08:23)
[2023-09-30 09:41] LABS: Hematocrit 36.3 % (37.0-47.0); Hemoglobin 11.9 g/dL (12.0-16.0); Mean Corp Hgb Conc. 32.8 g/dL (33.0-37.0); Mean Corpuscular Hgb 30.8 pg (27.0-31.0); Mean Platelet Volume 9.3 fL (7.4-10.4); Platelet Count 224 10^3/uL (130-400); Red Blood Cell Count 3.86 10^6/uL (4.20-5.40); Red Cell Dist. Width 13.8 % (11.5-14.5); White Blood Cell Count 10.5 10^3/uL (4.8-10.8)
[2023-09-30 09:55] LABS: Blood Urea Nitrogen 26 mg/dl (7-17); Calcium 8.8 mg/dl (8.4-10.2); Carbon Dioxide 35 mmol/L (22-30); Chloride 98 mmol/L (98-107); Estimated Creatinine Clearance 63 ml/min; Glucose 232 mg/dl (70-99); Potassium 4.3 mmol/L (3.5-5.1); Sodium 136 mmol/L (135-145); eGFR > 60.00
--- NOTE | 2023-09-30 13:30 | W.PN.PUL3 ---
Today's Communication / Plan
-
Continue nebulizer therapy DuoNebs/Pulmicort --> DC on Albuterol + budesonide + have her continue Anoro
Start prednisone taper starting tomorrow (09/30)
Azithromycin for anti-inflammatory properties
Secretion clearance intervention
Plan to DC home tomorrow (09/30); we will follow up with her in our [facility] office.
Assessment
-
78-year-old woman with known from my outpatient office for bronchiectasis, came to the hospital complaining of coughing and wheezing. Found to be bronchospastic. Possibly triggered by a viral infection. She had some visitors from out of town that
came with a viral infection prior to admission to the hospital.
-
Cough/bronchitis-respiratory sufficiency.
Bronchospasm
Suspect Bronchiectasis exacerbation- tracheobronchitis, post viral infection.
Conditions present prior admission:
Chronic, multifactorial including: Deconditioning, COPD, underlying bronchiectasis with post inflammatory scarring.CT chest: Improved groundglass opacities, Chronic bronchiectasis noted. Minimal 3 in bud opacities bilaterally.
History of MAC infection diagnosed in 2008, treated with antibiotics [id number]. Repeat sputum cultures were negative per prior instrument worker report. No indication of active infection. Continue to monitor.Repeat CT chest 04/2023:Showed improvement on
acute pneumonia. There is chronic bronchiectasis.
Now Following locally with Dr. Sims last seen 09/10/2023
Moderate obstructive lung disease on pulmonary function testing 09/10/2023.
Chronically on ANORO
Coronary artery disease
Hypertension
Hyperlipidemia
History of aortic valve replacement
Cardiac stents
GERD
Hypothyroidism
CT chest 05/10/2023:
1. Chronic scarring and bronchiectasis within the right middle lobe. Chronic scarring at the left lung apex. Scattered foci of tree-in-bud opacities. Overall, findings are most suggestive of chronic indolent infection such as ESTELLA. Mild interstitial
fibrosis remains in the differential diagnosis.
2. Groundglass opacities seen on prior CT dated 02/27/2023 has significantly improved, and nearly resolved.
3. Moderate calcification of the LAD. Please correlate with symptoms of and risk factors for coronary artery disease, with further workup as clinically appropriate.
4. Small hiatal hernia, without evidence of incarceration.
5. Cholelithiasis without evidence of acute cholecystitis.
Assessment and plan:
Clinical picture more consistent with viral infection, exacerbated bronchiectasis due to this viral infection.
-
Clinically improving.
Cough is better
Bronchospasm better
She feels that she is almost back to baseline. I feel she can be discharged by tomorrow (10/01/2023)
On 09/27 we decreased dexamethasone to 4 mg IV every 12 hours. Transition to prednisone today and start at 40mg daily and reduce by 10mg every 3rd day until off.
Infectious disease correspondence reviewed: No need for additional antibiotics.
Continue azithromycin. For anti-inflammatory properties. Would do 500mg TIW or 250mg q daily
-
Patient usually on ANORO in the outpatient setting, trying to avoid inhaled corticosteroids due to increased risk of recurrent infection/ESTELLA.
-
Continue DuoNebs QID
Continue Pulmicort BID
Recommend to discharge on budesonide BID 0.5mg as well as albuterol 0.083% TID, and have her continue her Anoro. She has nebulizer at home.
-
Acapella device for secretion clearance
Antitussive
Mucolytics
-
Last appointment 09/10/2023: Recurrent ESTELLA was not highly suspected.
Eventually will obtain repeat a sputum culture
Overall her latest CT of the chest shows significant improvement on bilateral infiltrates. She has chronic changes.
Her symptoms have been stable after ESTELLA therapy.
I will continue to observe in the outpatient setting.
-
Will continue to follow
Short-term follow-up with Dr. Sims after discharge.
Pulmonary service will continue to follow along while she remains inpatient. Plan is to discharge tomorrow morning, which is ok.
Subjective Data
-
Date of Service:
Date of Service: September 30, 2023
Chief Complaint: Pulmonary Follow Up (Acute respiratory insufficiency-acute bronchiectasis exacerbation.)
Subjective:
Seen this afternoon. She is laying in bed in [facility]. She is on room air. She feels like she is contuining to improve, but is not yet ready to go home. She feels like she needs 1 more day to improve. She says her SOB is close to baseline. She
feels tired today though. Denies chest pain, ARAYA, abd pain, N/V/f/c.
Review of Systems
General: Other (negative unless mentioned above)
Objective Data
Data Reviewed
Vital Signs / I&O / Oxygen:
Vital Signs
Temp Pulse Resp BP Pulse Ox
97.7 F 87 18 129/51 91
09/30/23 16:00 09/30/23 16:00 09/30/23 16:00 09/30/23 16:00 09/30/23 16:00
Intake and Output
09/29/23 09/30/23 10/01/23
06:59 06:59 06:59
Intake Total 390 / 390
Balance 390 / 390
SaO2 91
Nasal Cannula flow liters per 1
minute
Physical Exam
General: Respiratory Distress (n) and Comfortable
HEENT: Normocephalic and Anicteric
Cardiovascular: S1-S2 and Peripheral Edema (negative)
Respiratory: Wheeze (negative), Crackles (Right posterior hemithorax), Rhonchi (negative) and Non-Labored Respirations
GI: Soft, Non Distended, Non Tender and Normal Bowel Sounds
Neurology: AO x 3, No Motor Deficits and Tremors (negative)
Skin: Warm and Dry
Labs/Micro/Reports
Lab Data
09/30/23 09:25
09/30/23 09:25
[2023-09-30 16:00] VITALS: BP 129/51
--- NOTE | 2023-09-30 17:20 | W.PN.HOSP.TC ---
Today's Communication/Plan
-
Pulmonary recommended discharging patient tomorrow
Does not need oxygen on home oxygen assessment
Today is the last day of intravenous steroids
Start PO Prednisone tomorrow
Assessment / Plan
Assessment / Plan
Physical Exam
General: Not in acute distress
HEENT: Normocephalic
Cardiovascular: S1/S2. RRR.
Respiratory: Wheezes present - NOW ON ROOM AIR (DOWN FROM 6 L, THEN 3 L, THEN TO ROOM AIR)
GI: Soft and Non Distended. Positive bowel sounds.
Neurology: Awake, AO x 3 and No Motor Deficits
Skin: Warm and dry
Assessment/Plan
#Acute on chronic hypoxic respiratory failure 2/2 Viral URI (likely) vs. PNA right lung (unlikely)
#Localized Infection Only, Without Systemic Illness
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
#History of Mycobacterium AVM complex
#Bronchiectasis
#Pulm MAC treated in the past plus lung resection (previously followed at [facility] but physician retiring and now following Dr. Cobb who started Azithromycin [facility]),
#COPD
-Spoke to pulmonary, would like to discharge patient on October 01, 2023 (from pulmonary standpoint)
-Patient recently had multiple family members recently visiting who were ill
-COVID/flu negative
-DuoNebs scheduled and as needed
-Prior pulmonary Dr elias parra Pulm at [facility] for MAC
-Now follows with [facility] is on chronic Zithromax every other day started 2 weeks ago in August
-Now IV Decadron decreased to 4 mg every 12 hours from every 8 hours from every 6 hours
-Start Prednisone 40 mg daily on October 01, 2023
-Continue secretion clearance interventions
-Follow sputum culture, blood cultures x 2
-DuoNebs and Pulmicort
-May need to discharge on the following breathing treatment regimen until patient is improved: 1) Discontinue inhalers. 2)Discontinue albuterol nebulizers. 3) Continue DuoNebs 4 times a day. 4) Continue Pulmicort twice a day.
-No antibiotics except for Zithromax for anti-inflammatory effect (Azithromycin dose after discharge should be 250 mg Hmyoze-Mbpymlztb-Fxvwnh)
-Continue home Anoro Ellipta - trying to avoid inhaled corticosteroids due to increased risk of recurrent infection/ESTELLA
-Consulted pulmonary, recommendations appreciated
-Consulted ID, recommendations appreciated
-PT/OT/case management consult
�� CXR: Worsening aeration of the lungs anteriorly right greater than left consistent with superimposed pneumonic process in a patient with chronic lung changes
�� EKG: NSR 97 bpm, QTc 449 MS no significant change from January 2023
#Hyperglycemia�mild
BS 145 ,check HgbA1c
Healthy heart 2200 ADA diet
Monitor while on steroids
Should improve as steroids are decreased further
#Hyperkalemia - RESOLVED
-On ARB for blood pressure
-Monitor potassium
#Hypertension-benign
-Continue losartan
#Hyperlipidemia
Continue Crestor
#CAD/cardiac stents
-Continue Plavix, aspirin
#TAVR hx
#GERD
-Continue Protonix
#Hypothyroidism
-Continue levothyroxine
DVT prophylaxis
-Subcu Lovenox
DNR per patient
Anticipated Discharge: Within 24 hours
Subjective/Interval History
-
Date of Service: September 30, 2023
Patient was seen and examined. She was able to be take off oxygen today and reported her symptoms are better overall. No new symptoms or complaints.
Objective Data
-
Labs:
Laboratory Results
09/30/23
09:25
WBC 10.5
Hgb 11.9 L
Hct 36.3 L
Plt Count 224
Sodium 136
Potassium 4.3
Chloride 98
Carbon Dioxide 35 H
BUN 26 H
Creatinine 0.7
Glucose 232 H
Calcium 8.8
Vital Signs:
Vital Signs
Temp Pulse Resp BP Pulse Ox
97.7 F 87 18 129/51 91
09/30/23 16:00 09/30/23 16:00 09/30/23 16:00 09/30/23 16:00 09/30/23 16:00
I&O
09/29/23 09/30/23 10/01/23
06:59 06:59 06:59
Intake Total 390 / 390
Balance 390 / 390
[2023-09-30] MEDS: LOVENOX SC (17:29)
[2023-09-30] MEDS: OSCAL CAL 500 1000 MG PO (20:08)
[2023-09-30] MEDS: VITAMIN C 1000 MG PO (20:08)
[2023-09-30] MEDS: MAG-TAB SR 84 MG PO (20:08)
[2023-09-30] MEDS: CRESTOR 20 MG PO (20:08)
[2023-09-30 23:17] VITALS: BP 128/48
[2023-10-01] MEDS: SYNTHROID 88 MCG PO (06:18)
[2023-10-01 07:25] VITALS: BP 141/68
[2023-10-01] MEDS: DUONEB 3 ML INH ×2 (07:59→11:32)
[2023-10-01] MEDS: PULMICORT 0.5 MG INH (08:01)
[2023-10-01 08:13] LABS: Hematocrit 37.1 % (37.0-47.0); Hemoglobin 12.1 g/dL (12.0-16.0); Mean Corp Hgb Conc. 32.6 g/dL (33.0-37.0); Mean Corpuscular Hgb 30.4 pg (27.0-31.0); Mean Corpuscular Volume 93.2 fL (81.0-99.0); Mean Platelet Volume 9.5 fL (7.4-10.4); Platelet Count 239 10^3/uL (130-400); Red Blood Cell Count 3.98 10^6/uL (4.20-5.40); Red Cell Dist. Width 13.7 % (11.5-14.5); White Blood Cell Count 12.8 10^3/uL (4.8-10.8)
[2023-10-01 08:44] LABS: Blood Urea Nitrogen 24 mg/dl (7-17); Calcium 8.9 mg/dl (8.4-10.2); Carbon Dioxide 31 mmol/L (22-30); Chloride 100 mmol/L (98-107); Estimated Creatinine Clearance 74 ml/min; Glucose 129 mg/dl (70-99); Magnesium 2.2 mg/dl (1.6-2.3); Potassium 4.4 mmol/L (3.5-5.1); Sodium 136 mmol/L (135-145); eGFR > 60.00
[2023-10-01] MEDS: ZITHROMAX 500 MG PO (08:58)
[2023-10-01] MEDS: ASPIR LOW (ENTERIC COATED) 81 MG PO (08:59)
[2023-10-01] MEDS: PROTONIX 20 MG PO (08:59)
[2023-10-01] MEDS: DELTASONE 40 MG PO (08:59)
[2023-10-01] MEDS: MUCINEX 600 MG PO (08:59)
[2023-10-01] MEDS: VITAMIN B-12 1000 MCG PO (08:59)
[2023-10-01] MEDS: COZAAR 25 MG PO (08:59)
[2023-10-01] MEDS: PLAVIX 75 MG PO (09:00)
[2023-10-01 09:45] VITALS: BP 139/63
--- NOTE | 2023-10-01 10:01 | W.PN.PUL.V3 ---
Today's Communication / Plan
-
Wean oxygen
Increase activity
Prednisone taper
Outpatient pulmonary follow-up
Assessment
-
78-year-old woman with known from my outpatient office for bronchiectasis, came to the hospital complaining of coughing and wheezing. Found to be bronchospastic. Possibly triggered by a viral infection. She had some visitors from out of town that
came with a viral infection prior to admission to the hospital.
-
Cough/bronchitis-respiratory sufficiency.
Bronchospasm
Suspect Bronchiectasis exacerbation- tracheobronchitis, post viral infection.
Conditions present prior admission:
Chronic, multifactorial including: Deconditioning, COPD, underlying bronchiectasis with post inflammatory scarring.CT chest: Improved groundglass opacities, Chronic bronchiectasis noted. Minimal 3 in bud opacities bilaterally.
History of MAC infection diagnosed in 2008, treated with antibiotics [id number]. Repeat sputum cultures were negative per prior surgical attendant report. No indication of active infection. Continue to monitor.Repeat CT chest 04/2023:Showed improvement on
acute pneumonia. There is chronic bronchiectasis.
Now Following locally with Dr. Sims last seen 09/10/2023
Moderate obstructive lung disease on pulmonary function testing 09/10/2023.
Chronically on ANORO
Coronary artery disease
Hypertension
Hyperlipidemia
History of aortic valve replacement
Cardiac stents
GERD
Hypothyroidism
CT chest 05/10/2023:
1. Chronic scarring and bronchiectasis within the right middle lobe. Chronic scarring at the left lung apex. Scattered foci of tree-in-bud opacities. Overall, findings are most suggestive of chronic indolent infection such as ESTELLA. Mild interstitial
fibrosis remains in the differential diagnosis.
2. Groundglass opacities seen on prior CT dated 02/27/2023 has significantly improved, and nearly resolved.
3. Moderate calcification of the LAD. Please correlate with symptoms of and risk factors for coronary artery disease, with further workup as clinically appropriate.
4. Small hiatal hernia, without evidence of incarceration.
5. Cholelithiasis without evidence of acute cholecystitis.
Plan
Clinical picture more consistent with viral infection, exacerbated bronchiectasis due to this viral infection.
Respiratory status improving
Wean FiO2
Assess discharge supplemental oxygen needs prior to discharge
Transition to prednisone with slow taper
Continue azithromycin for anti-inflammatory properties
Continue inhalers
Continue nebulizers-DuoNebs and Pulmicort
Acapella
Antitussives
Mucolytic's
DVT prophylaxis-on Lovenox
GI prophylaxis-on pantoprazole
Nutrition
Increase activity/early mobilization
Last appointment 09/10/2023: Recurrent ESTELLA was not highly suspected.
Eventually will obtain repeat a sputum culture
Overall her latest CT of the chest shows significant improvement on bilateral infiltrates. She has chronic changes.
Her symptoms have been stable after ESTELLA therapy.
Short-term follow-up with Dr. Sims after discharge.
Subjective Data
-
Date of Service:
Date of Service: October 01, 2023
Chief Complaint: Pulmonary Follow Up (Acute respiratory insufficiency-acute bronchiectasis exacerbation.) and Dyspnea Follow Up
Subjective:
Feels better, anxious for discharge, no chest pain, increased shortness of breath, chest congestion
Review of Systems
General: Other (Per HPI)
HEENT: Other
Objective Data
Data Reviewed
Vital Signs / I&O:
Vital Signs
Temp Pulse Resp BP Pulse Ox
97.9 F 86 16 141/68 94
10/01/23 07:25 10/01/23 08:59 10/01/23 08:00 10/01/23 08:59 10/01/23 08:00
Intake and Output
09/30/23 10/01/23 10/02/23
06:59 06:59 06:59
Intake Total 390 / 390 660 / 660
Balance 390 / 390 660 / 660
SaO2: 94
Nasal Cannula flow liters per minute: 1
Physical Exam
General: Respiratory Distress (n) and Comfortable
HEENT: Normocephalic and Anicteric
Cardiovascular: S1-S2 and Peripheral Edema (negative)
Respiratory: Wheeze (negative), Crackles (Right posterior hemithorax), Rhonchi (negative) and Non-Labored Respirations
GI: Soft, Non Distended, Non Tender and Normal Bowel Sounds
Neurology: AO x 3, No Motor Deficits and Tremors (negative)
Skin: Warm, Dry, Good Color, Cyanosis (n), Jaundice (n) and Rash (n)
Labs/Micro/Reports
Lab Data
10/01/23 07:47
10/01/23 07:47
--- NOTE | 2023-10-01 10:34 | W.PN.HOSP.TC ---
Today's Communication/Plan
-
DC
Assessment / Plan
Assessment / Plan
Assessment/Plan
#Acute hypoxic respiratory failure -off of O2
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
#History of Mycobacterium AVM complex
#Bronchiectasis with exacerbation
#Pulm MAC treated in the past plus lung resection (previously followed at [facility] but physician retiring and now following Dr. Cobb who started Azithromycin MW),
#COPD
-Patient recently had multiple family members recently visiting who were ill
-COVID/flu negative
-DuoNebs scheduled and as needed
-Prior pulmonary Dr elias parra Pulm at [facility] for MAC
-Now follows with [facility] is on chronic Zithromax every other day started 2 weeks ago in August
-Now IV Decadron decreased to 4 mg every 12 hours from every 8 hours from every 6 hours
-Start Prednisone 40 mg daily on October 01, 2023
-DC meds as reccommended by pulm noted
-No antibiotics except for Zithromax for anti-inflammatory effect (Azithromycin dose after discharge should be 250 mg Tteryd-Iglymgtpz-Zlqmrh)
-Continue home Anoro Ellipta - trying to avoid inhaled corticosteroids due to increased risk of recurrent infection/ESTELLA
-Consulted pulmonary, recommendations appreciated
-Consulted ID, recommendations appreciated
#Hyperglycemia�mild
BS 129 this am
Should improve as steroids are decreased further
-On ARB for blood pressure
-Monitor potassium
#Hypertension-benign
-Continue losartan
#Hyperlipidemia
Continue Crestor
#CAD/cardiac stents
-Continue Plavix, aspirin
#TAVR hx
#GERD
-Continue Protonix
#Hypothyroidism
-Continue levothyroxine
DVT prophylaxis
-Subcu Lovenox
DNR per patient
Medically stable for discharge today.
Anticipated Discharge: Today
Subjective/Interval History
-
Date of Service: October 01, 2023
Feeling improved from a breathing standpoint.
Denies shortness of breath. Off of oxygen this morning.
Denies chest pain.
Objective Data
-
Labs:
Laboratory Results
10/01/23
07:47
WBC 12.8 H
Hgb 12.1
Hct 37.1
Plt Count 239
Sodium 136
Potassium 4.4
Chloride 100
Carbon Dioxide 31 H
BUN 24 H
Creatinine 0.6
Glucose 129 H
Calcium 8.9
Vital Signs:
Vital Signs
Temp Pulse Resp BP Pulse Ox
97.9 F 86 16 141/68 94
10/01/23 07:25 10/01/23 08:59 10/01/23 08:00 10/01/23 08:59 10/01/23 10:01
I&O
09/30/23 10/01/23 10/02/23
06:59 06:59 06:59
Intake Total 390 / 390 660 / 660
Balance 390 / 390 660 / 660
Review of Systems
-
Constitutional: Denies Fever
Respiratory: Denies Cough
Abdomen/GI: Denies Nausea or Vomiting
Neuro: Denies Dizzy
Physical Exam
-
General: No Apparent Distress
HEENT: Moist Mucous Membranes
Respiratory: Clear to Auscultation; Negative Wheezes
Cardiac: Regular Rhythm and S1/S2; Negative Tachycardic
GI: Soft
Neuro: AO x 3
Psych: Calm
--- NOTE | 2023-10-01 10:48 | W.DS.TRANS ---
DC Summary - [employer]
-
Discharge Instructions:
Discharge Diagnosis/Procedures Bronchiectasis exacerbation
Activity As tolerated
Driving Restrictions As prior to admission
Bathing Restrictions None
Instructions:
Stand-Alone Forms:
Changes to Home Medications: Yes
Discharge Medications:
DC Medications w/original date entered in [employer]
ascorbic acid (vitamin C) 1,000 mg tablet (Vitamin C) 1,000 mg PO DAILY@1999 Supplement 02/26/23
clopidogrel 75 mg tablet (Plavix) 75 mg PO DAILY Blood Clot Prevention/Tx 02/26/23
levothyroxine 88 mcg tablet 88 mcg PO DAILY Thyroid 02/26/23
losartan 25 mg tablet 25 mg PO DAILY Blood Pressure 02/26/23
magnesium 200 mg tablet 200 mg PO DAILY@1999 Supplement 02/26/23
pantoprazole 20 mg tablet,delayed release 20 mg PO DAILY Gastrointestinal Issue 02/26/23
rosuvastatin 20 mg tablet 20 mg PO DAILY@1999 High Cholesterol 02/26/23
umeclidinium 62.5 mcg-vilanterol 25 mcg/actuation powdr for inhalation (Anoro Ellipta) 1 inh inhalation R DAILY Lung/Breathing Issues 02/26/23
Elderberry 1 tab PO .LUNCHTIME Supplement 09/25/23
Mucinex Cold And Flu Am 1 tab PO Q4HPRN PRN congestion 09/25/23
acetaminophen 325 mg tablet (Tylenol) 325 mg PO DAILYPRN PRN mild pain 09/25/23
albuterol sulfate 2.5 mg/3 mL (0.083 %) solution for nebulization 2.5 mg inhalation R BIDPRN PRN SOB 09/25/23
aspirin 81 mg tablet,delayed release 81 mg PO DAILY Blood Clot Prevention/Tx 09/25/23
azithromycin 250 mg tablet 250 mg PO MOWEFR@0800 Infection 09/25/23
biotin 2,500 mcg capsule 2,500 mcg PO DAILY Supplement 09/25/23
calcium carbonate 600 mg calcium (1,500 mg) tablet (Calcium) 1,200 mg PO DAILY@1999 Supplement 09/25/23
clobetasol 0.05 % topical cream 1 applic topical HSPRN PRN apply to right leg 09/25/23
cyanocobalamin (vitamin B-12) 1 tab PO DAILY@1999 Supplement 09/25/23
denosumab 60 mg/mL subcutaneous syringe (Prolia) 60 mg SC [id number] Osteoporosis 09/25/23
budesonide 0.5 mg/2 mL suspension for nebulization 0.5 mg (2 mL) inhalation R BID #60 mL 10/01/23
prednisone 10 mg tablet 10 mg PO DIRECTED #30 tabs 10/01/23
Home Medication Changes
Medicine-prednisone 10 mg , budesonide nebs
Pending Results: No
[2023-10-01 11:32] VITALS: BP 141/59
--- NOTE | 2023-10-01 12:48 | CM ---
Received update from attending that patient is for discharge today. Roxana marrufo was advised. Double checked that patient is on room air.
Plan: Case management will continue to follow and assist with discharge planning. Patient will return home today.
== END 2023-10-01 12:55 | disposition home health service (06) | DRG 189 ==
LOC: 4 EAST ACU 12:57
PROVIDERS: Clinical Nurse Specialist Family Health; ADMITTING PHYSICIAN Hospitalist; ATTENDING PHYSICIAN Internal Medicine; CONSULT PHYSICIAN Internal Medicine Critical Care Medicine; CONSULT PHYSICIAN Internal Medicine Infectious Disease; EMERGENCY PHYSICIAN Emergency Medicine; FAMILY PHYSICIAN Family Medicine
DX: J96.01 Acute respiratory failure with hypoxia (principal); J47.1 Bronchiectasis with (acute) exacerbation; A31.0 Pulmonary mycobacterial infection; J06.9 Acute upper respiratory infection, unspecified; I25.10 Atherosclerotic heart disease of native coronary artery without angina pectoris; I10 Essential (primary) hypertension; E78.00 Pure hypercholesterolemia, unspecified; K21.9 Gastro-esophageal reflux disease without esophagitis; E03.9 Hypothyroidism, unspecified
CPT/HCPCS: 71046; 80048; 80053; 83735; 85025; 85027; 87070; 87502; 87811; 87880; 92610; 93005; 94640; 96374; 96375; 97116; 97162; 97166; 99285

== ENCOUNTER 2023-12-25 09:00 | Outpatient (RCR) | payer MEDICARE, OTHER, SELFPAY | END 2023-12-25 23:59 | disposition home or self-care (01) | LOC: PURB 09:00 | PROVIDERS: ATTENDING PHYSICIAN Internal Medicine Critical Care Medicine; FAMILY PHYSICIAN Family Medicine | DX: J47.9 Bronchiectasis, uncomplicated (principal); R06.02 Shortness of breath; Z90.2 Acquired absence of lung [part of]; Z95.2 Presence of prosthetic heart valve | CPT/HCPCS: G0237 ==

== ENCOUNTER 2024-01-24 14:45 | Outpatient (RCR) | payer MEDICARE, OTHER, SELFPAY | END 2024-01-24 23:59 | disposition home or self-care (01) | LOC: PURB 14:45 | PROVIDERS: ATTENDING PHYSICIAN Internal Medicine Critical Care Medicine; FAMILY PHYSICIAN Family Medicine | DX: J47.9 Bronchiectasis, uncomplicated (principal) | CPT/HCPCS: G0239 ==

== ENCOUNTER 2024-02-21 13:15 | Outpatient (RCR) | payer MEDICARE, OTHER, SELFPAY | END 2024-02-27 09:12 | disposition home or self-care (01) | LOC: PURB 13:15 | PROVIDERS: ATTENDING PHYSICIAN Internal Medicine Critical Care Medicine; FAMILY PHYSICIAN Family Medicine | DX: J47.9 Bronchiectasis, uncomplicated (principal) | CPT/HCPCS: G0239 ==

== ENCOUNTER 2024-03-13 13:15 | Outpatient (RCR) | payer MEDICARE, OTHER, SELFPAY | END 2024-03-14 10:18 | disposition home or self-care (01) | LOC: PURB 13:15 | PROVIDERS: ATTENDING PHYSICIAN Internal Medicine Critical Care Medicine; FAMILY PHYSICIAN Family Medicine | DX: J47.9 Bronchiectasis, uncomplicated (principal) | CPT/HCPCS: G0239 ==

== ENCOUNTER → 2024-06-17 14:16 | Outpatient (REF) | payer MEDICARE, OTHER, SELFPAY ==
[2024-06-17 15:23] LABS: Blood Urea Nitrogen 15 mg/dl (7-17)
== END ==
LOC: RAD 14:16
PROVIDERS: ATTENDING PHYSICIAN Nurse Practitioner Adult Health
DX: R04.2 Hemoptysis (principal); R06.02 Shortness of breath
CPT/HCPCS: 36415; 71275; 82565; 84520; Q9967